=== PATIENT | female | born 1950 | race Caucasian/White ===

== ENCOUNTER 2017-05-26 11:33 | Emergency (ER) | payer MEDICARE, OTHER, SELFPAY ==
[2017-05-26 11:35] VITALS: BP 181/86; PULSE 78; RESP 18; TEMP 36.8; O2SAT 95; BMI 72.5
[2017-05-26 11:51] VITALS: O2SAT 97
--- NOTE | 2017-05-26 11:53 | EKG12_ITS ---
Test Reason : SOB Blood Pressure : / mmHG Vent. Rate : 075 BPM Atrial Rate : 075 BPM P-R Int : 156 ms QRS Dur : 070 ms QT Int : 368 ms P-R-T Axes : 044 056 087 degrees QTc Int : 410 ms Normal sinus rhythm Normal ECG Confirmed by BRAYAN DE LOS SANTOS, DIAN ([id number]), copy editor TAYLOR ARAIZA ([id number]) on 05/28/2017 4:04:29 PM Referred By: MARIA GUADALUPE Confirmed By:DIAN SCHMIDT MD
--- NOTE | 2017-05-26 11:53 | RAD_ITS ---
STUDY: X-RAY CHEST REASON FOR EXAM: Female, 67 years old. Chest pain for several days TECHNIQUE: 2 views of the chest were obtained COMPARISON: January 06, 2011 FINDINGS: No lung consolidation, pleural effusion or pneumothorax. Cardiac size is within normal limits. Osseous structures demonstrate no acute abnormalities. Slightly elevated right hemidiaphragm. Mild anterior wedging of the thoracic vertebrae possibly chronic mild perihilar streaky opacities. RAD/Chest PA and Lateral IMPRESSION: No evidence for focal airspace consolidation. Electronically Signed: Erasto Chowdhury, at 13:33 EST Tel , Service support ,
--- NOTE | 2017-05-26 11:59 | ED.VISSUMM ---
- ER Visit Summary Date of Service: 05/26/17 Chief Complaint: Chest pain and shortness of breath History of Present Illness: The patient is a [address] Santiago. She reports that she has a chronic cough that is essentially unchanged. Is productive yellow sputum without blood. However, over the past 3 days she has had subjective fever, chills, cold sweats. She has had mild shortness of breath currently. She reports moderate shortness of breath when she gets to coughing. Patient reports that she has had a constant substernal pressure for the past 3 days. It is 8 out of 10 at worst and 5 out of 10 currently. Is worsened with coughing. It is unchanged with exertion or deep breaths. Nothing makes this better. States she has had similar symptoms previously with URI. Review of systems patient complains of sinus drainage, sore throat is 9 out of 10 severity, myalgias, headache that is 8 out of 10 severity. She does report she has had similar headaches in the past. Physical Examination: Vitals: Stable. Afebrile. General: Well-nourished and well-developed. Head: Normocephalic atraumatic. Neck: Supple, no lymphadenopathy. No JVD. Nontender. Cardiovascular: Regular rate and rhythm. No murmurs. Respiratory: No respiratory distress. Clear to auscultation bilaterally. Abdominal: Soft, nontender, nondistended, normal bowel sounds. No guarding, rebound, or peritoneal signs. Back: Nontender. Extremities: Nontender, no edema. Skin: Normal color, no rash. Neurologic: Alert and oriented ?3. Cranial nerves II through XII are intact. Normal strength and sensation. Psych: Normal affect. Test Results: EKG is sinus at 75 with no acute changes. CBC is remarkable for segment neutrophils of 75. Chem-7 is more for glucose of 130. Influenza is negative. Troponin is less than 0.02. Chest x-ray shows chronic changes and no acute disease. Emergency Department Course and Treatment: She had an IV placed. She was given an albuterol aerosol with relief of her chest pain and significant relief of her shortness of breath. Treatment Plan: Patient will be discharged with symptomatic care. Given a prescription for albuterol MDI. Instructed follow-up Dr. Santiago in 3-5 days if not improving. Return to the emergency department for any worsening symptoms. Disposition: To home in improved and stable condition. Impression: 1. URI. This note was generated with [employer] dictation software. It may contain incorrect words, spelling, and punctuation that were not noted in review of the chart prior to signing ED Disposition - Plan for ED Patient: Disposition: Home or Assisted Living Chief Complaint: Shortness of Breath Instructions: ED Upper Resp Infec No Abx Tx Prescriptions: Albuterol Inhaler [Ventolin Hfa] 1 - 2 puff INHALATION Q4H PRN PRN #1 inhaler PRN Reason: Wheezing Referrals: Ana Santiago DO [Primary Care Provider] - 3-5 Days if not improving
[2017-05-26] MEDS: Albuterol 2.5 MG/3 ML VIAL.NEB. INHALATION (12:02)
[2017-05-26 12:03] VITALS: PULSE 75; RESP 15
[2017-05-26 12:03] LABS: Absolute Lymphocyte Count 1.87 X10^3/ul (0.83-4.51); Absolute Neutrophil Count 7.1 X10^3/uL (2.0-7.7); Basophil# 0.02 X10^3/uL; Basophil% 0.2 % (0-1); Eosinophil# 0.11 X10^3/uL; Eosinophils% 1.2 % (0-5); Hematocrit 42.4 % (37-47); Hemoglobin 13.9 g/dl (12.0-15.0); Lymphocyte # 1.87 X10^3/ul (4.0); Lymphocyte % 19.7 % (19-41); Mean Corp Hgb Conc 32.8 g/gl (32-36); Mean Corpuscular Hgb 30.3 pg (27.0-32.0); Mean Corpuscular Volume 92.6 fL (81-99); Mean Platelet Vol. 10.9 fl (6.2-12.0); Monocyte# 0.38 X10^3/uL; Neutrophil # 7.09 X10^3/uL (2.7-7.7); Neutrophil % 74.8 % (47-70); Platelet Count 243 K/mm3 (150-450); RBC Distribution Width SD 43.1 fl (35.1-43.9); Red Blood Count 4.58 M/mm3 (4.2-5.4); White Blood Count 9.5 K/mm3 (4.4-11.0)
[2017-05-26 12:04] LABS: POSITIVE COUNT NO; POSITIVE DIFFERENTIAL NO; POSITIVE MORPHOLOGY NO
[2017-05-26 12:16] LABS: Anion Gap 7 (5-15); BUN 10 mg/dL (7-18); BUN/Creat Ratio 12.8 RATIO (10-20); Calcium,Total 9.6 mg/dL (8.5-10.1); Chloride 105 mmol/L (98-107); Creatinine, Serum 0.78 mg/dL (0.55-1.02); EST Glomerular Filtration Rate 79 mL/min (>60); Est Glom Filt Rate - Afr Amer 95 mL/min (>60); Estimated Creatinine Clearance 56.87 ml/min; Glucose 130 mg/dL (74-106); Sodium Level 139 mmol/L (136-145)
[2017-05-26] MEDS: 0.9% Normal Saline 1,000 ML 150 ML IV (12:30)
[2017-05-26 13:07] VITALS: BP 112/53; PULSE 77; RESP 12; O2SAT 94
[2017-05-26 14:16] VITALS: BP 131/74; PULSE 62; RESP 16; TEMP 36.3; O2SAT 97
== END 2017-05-26 14:28 | disposition home or self-care (01) ==
PROVIDERS: Emergency Provider Emergency Medicine; Family Provider Internal Medicine; PCP Internal Medicine
DX: J06.9 Acute upper respiratory infection, unspecified (principal); J44.9 Chronic obstructive pulmonary disease, unspecified; I10 Essential (primary) hypertension; E78.00 Pure hypercholesterolemia, unspecified; E11.9 Type 2 diabetes mellitus without complications; Z79.84 Long term (current) use of oral hypoglycemic drugs; F32.9 Major depressive disorder, single episode, unspecified; E03.9 Hypothyroidism, unspecified; Z72.0 Tobacco use; Z82.49 Family history of ischemic heart disease and other diseases of the circulatory system; Z79.899 Other long term (current) drug therapy
CPT/HCPCS: 71046; 80048; 84484; 85025; 87804; 93005; 94640; 96360; 96361; 99285; J7030; A4216

== ENCOUNTER → 2018-10-27 10:03 | Outpatient (CLI) | payer MEDICARE, OTHER, SELFPAY ==
--- NOTE | 2018-10-27 10:08 | US_ITS ---
STUDY: ABDOMINAL ULTRASOUND - RIGHT UPPER QUADRANT REASON FOR VISIT: Female, 68 years old. Right upper quadrant pain TECHNIQUE: Ultrasound evaluation of the right upper quadrant was performed with real-time and static schofield-scale imaging. TECHNICAL QUALITY: Adequate. COMPARISON: None. FINDINGS: Liver: The liver measures 18.4 cm. There is fatty echogenicity of the liver. The bile ducts are within normal limits. There is hepatic color flow. The direction of portal flow is hepatopetal. There is no demonstrated mass lesion. Gallbladder: Normal distended gallbladder. The gallbladder wall measures 2.4 mm. There is a negative sonographic Roberts's sign. There is no pericholecystic fluid. There are gallstones. Common Bile Duct (C.B.D.): The common bile duct measures 3.8 mm. Pancreas: Normal size of the head, body and tail of the pancreas. There is normal echogenicity of the pancreas. There is no demonstrated pancreatic mass or cyst. Right Kidney: Normal size of the right kidney. The right kidney measures 12.0 x 4.9 x 4.6 cm. Normal renal cortex. The right cortex measures 1.5 cm. There is no demonstrated renal mass or cyst. There is no right hydronephrosis. US/Gallbladder IMPRESSION: Fatty enlarged liver. Cholelithiasis. Electronically Signed: Cuco Guajardo DO at 20:16 EDT Tel [phone], Service support ,
== END ==
PROVIDERS: Family Provider Internal Medicine; PCP Internal Medicine; Referring Provider Internal Medicine; Visit Provider Internal Medicine
DX: K80.20 Calculus of gallbladder without cholecystitis without obstruction (principal); K76.0 Fatty (change of) liver, not elsewhere classified; R10.11 Right upper quadrant pain
CPT/HCPCS: 76705

== ENCOUNTER 2018-11-12 12:14 | Emergency (ER) | payer MEDICARE, OTHER, SELFPAY ==
[2018-11-12 12:15] VITALS: BP 151/64; PULSE 99; RESP 17; TEMP 36.4; O2SAT 98; BMI 42.4
[2018-11-12 12:24] VITALS: BP 129/55; PULSE 81; RESP 15; O2SAT 96
--- NOTE | 2018-11-12 12:37 | ED.VIS.GEN ---
History of Present Illness Informant: Patient Onset: Yesterday Context: Sudden Onset Timing: Continuous Location: RUQ Current Severity: Mild Maximum Severity: Severe Narrative: Patient is a 68-year-old female 1 week status post lap scopic cholecystectomy presenting with sudden onset of right upper quadrant abdominal pain. She had a lap or scopic cholecystectomy performed at [facility] by Dr. Vail on 11/05/18. Patient states that the pain started around midnight last night, approximately 12 hours ago. She states it is very sharp and radiates around to her back. The pain seems to be worse with deep inspiration. Patient states she feels short of breath but it is because of the pain that she feels when she takes a deep breath. She has a chronic cough as a smoker but denies any change in this. She denies any fever. She denies any associated chest pain. She states her bowel movements have been irregular since before the surgery but is unchanged. She denies any black or bloody stools. She denies any urinary symptoms. Patient notes she was walking around yesterday and was feeling much better. She is been off her opioid pain medication since postop day 3. She is taken Aleve at home and nothing else. <Nancie Freed - Last Filed: 11/12/18 17:38> <Kike Licona - Last Filed: 11/20/18 00:26> Chief Complaint: Abd Pain Past Medical History Surgical History: - - Left ankle fracture, septoplasty, repair of colorectal fistula, hemorrhoidectomy Smoking Status: Current every day smoker - Family History Maternal Family History: Reports: Stroke Paternal Family History: Reports: Cancer Sibling Family History: Reports: Cancer <Nancie Freed - Last Filed: 11/12/18 17:38> <Kike Licona - Last Filed: 11/20/18 00:26> - Allergies and Home Meds Allergies/Adverse Reactions: Allergies metaxalone [From Skelaxin] Allergy (Verified 11/12/18 12:15) Other Penicillins Allergy (Verified 11/12/18 12:15) Hives Primary Care Physician: Ana Santiago DO [Primary Care Provider] - Mick Vail MD [STAFF PHYSICIAN] - 1 Day for another exam Review of Systems General: Denies: Chills, Fever, Sweats Eyes: Denies: Visual changes - bilaterally, Diplopia ENT: Denies: Rhinorrhea, Sore throat Cardiovascular: Denies: Chest pain, Palpitations Respiratory: Reports: Dyspnea, - - Pain with deep inspiration. Denies: Cough, Dyspnea on exertion Gastrointestinal: Reports: Abdominal pain - RUQ. Denies: Nausea, Vomiting, Diarrhea, Melena, Hematochezia Genitourinary: Denies: Dysuria, Hematuria, Frequency Musculoskeletal: Reports: Back pain - pain radiating to back. Denies: Extremity Pain Skin: Denies: Rash, Wounds Neurological: Denies: Headache, Weakness, Numbness <Nancie Freed - Last Filed: 11/12/18 17:38> Physical Exam Vital Signs/Narrative: Vital Signs Temp Pulse Resp BP Pulse Ox 11/12/18 12:24 81 15 129/55 H 96 11/12/18 12:15 97.5 F L 99 17 151/64 H 98 General: Well nourished, Well developed, No Acute Distress Head: Normocephalic, Atraumatic Eyes: Perrl, EOMI ENT: Moist mucous membranes, No rhinorrhea Neck: Supple, Nontender Cardiovascular: Regular rate, Regular rhythm, No murmurs Respiratory: No distress, CTA bilaterally, Chest nontender Abdomen: Soft, Nondistended, Normal bowel sounds, Tender - RUQ. Negative for: Nontender, Guarding, Rebound tenderness Back: Nontender, Normal Inspection. Negative for: CVA tenderness Extremities: Nontender, No edema Skin: Normal color, No rash, - - Laparoscopic port sites with associated ecchymosis, appears to be appropriate healing for postop. Neurological: Alert, Oriented x3, Cranial nerves II-XII grossly intact, Normal Strength, Normal Sensation Psychological: Normal affect, Normal Mood <Nancie Freed - Last Filed: 11/12/18 17:38> Diagnostic/Tx/Re-eval Chest X-Ray - ED: 2 View - No acute process, Read by ED Physician, Read by Radiologist, Normal - Rhythm Strip Rhythm Strip: Sinus Rhythm - Sinus rhythm at a rate of 88 CO interval 152 QRS 68 QT/QTc 342/[address] segments No significant change compared to prior EKG on 05/26/2017 - Medical Decision Making Patient is evaluated for right upper quadrant abdominal pain. Patient is one-week postoperative from a lap scopic cholecystectomy. Patient appears nontoxic and in no acute distress. She declines any pain medication while in the emergency room. She does elicit some pleuritic chest pain. D-dimer was obtained which is elevated. A CTA is ordered which does not show any PE or other acute thoracic pathology. Patient's alkaline phosphatase is mildly elevated which is consistent with her recent cholecystectomy however her other liver enzymes and bilirubin are normal and I do not suspect choledocholithiasis. Patient does have elevated leukoesterase in her urine but does not have CVA tenderness. Urine culture is pending. She does not have a significant leukocytosis and she will not be started on antibiotics at this time. Patient will be discharged home to follow-up with her surgeon, Dr. Vail. I did discuss the case with him on the phone and he is comfortable with this plan. Patient is counseled on signs and symptoms requiring return to the emergency room. Patient verbalizes agreement and understand this plan. Patient discharged home in stable and improved condition. <Nancie Freed - Last Filed: 11/12/18 17:38> - Medical Decision Making Attending Note: Patient presented secondary to right upper quadrant pain status post cholecystectomy. Work-up showed the patient have a positive d-dimer so CT angiogram was ordered which was found to be negative. Patient had a mildly elevated alkaline phosphatase which was discussed with her general surgeon, and this is normal following cholecystectomy. Patient was discharged in improved condition. <Kike Licona - Last Filed: 11/20/18 00:26> ED Disposition <Nancie Freed - Last Filed: 11/12/18 17:38> <Kike Licona - Last Filed: 11/20/18 00:26> - Plan for ED Patient: Disposition: Home or Assisted Living Diagnosis: Abdominal pain Instructions: Abdominal Pain, Managing Post-Op Pain at Home: Non-Medication Relief Referrals: Ana Santiago DO [Primary Care Provider] - Mick Vail MD [STAFF PHYSICIAN] - 1 Day for another exam
--- NOTE | 2018-11-12 12:39 | EKG12_ITS ---
Test Reason : ABD PAIN Blood Pressure : / mmHG Vent. Rate : 080 BPM Atrial Rate : 080 BPM P-R Int : 152 ms QRS Dur : 068 ms QT Int : 342 ms P-R-T Axes : 046 055 088 degrees QTc Int : 394 ms Normal sinus rhythm Nonspecific T wave abnormality Abnormal ECG Confirmed by XAVIER MCGRAW ([id number]), editor city MAHESH BAKER ([id number]) on 11/17/2018 2:07:51 PM Referred By: RISA Confirmed By:XAVIER MCGRAW
[2018-11-12 13:16] LABS: Absolute Lymphocyte Count 1.65 X10^3/uL (0.83-4.51); Absolute Neutrophil Count 9.3 X10^3/uL (2.0-7.7); Basophil# 0.03 X10^3/uL; Basophil% 0.3 % (0-1); Eosinophil# 0.15 X10^3/uL; Eosinophils% 1.3 % (0-5); Hemoglobin 13.5 g/dL (12.0-15.0); Lymphocyte # 1.65 X10^3/ul (4.0); Lymphocyte % 14.1 % (19-41); Mean Corp Hgb Conc 32.9 g/dL (32-36); Mean Corpuscular Hgb 31.2 pg (27.0-32.0); Mean Corpuscular Volume 94.7 fL (81-99); Monocyte# 0.54 X10^3/uL; Monocyte% 4.6 % (0-10); NRBC Flagged by Analyzer 0 % (0-5); Neutrophil # 9.28 X10^3/uL (2.7-7.7); Neutrophil % 79.2 % (47-70); Platelet Count 238 K/mm3 (150-450); RBC Distribution Width CV 12.4 % (11.6-14.6); RBC Distribution Width SD 43.2 fl (35.1-43.9); Red Blood Count 4.33 M/mm3 (4.2-5.4); White Blood Count 11.7 K/mm3 (4.4-11.0)
--- NOTE | 2018-11-12 13:17 | RAD_ITS ---
STUDY: X-RAY CHEST REASON FOR EXAM: Female, 68 years old. Postop pain TECHNIQUE: PA and lateral views of the chest. COMPARISON: 05/26/2017 FINDINGS: The lungs are clear and expanded. There is no demonstrated pleural abnormality. Normal size heart. Normal mediastinum and gabrile. Normal visualized pulmonary arteries. Normal visualized aortic arch and descending thoracic aorta. Normal visualized thoracic spine. Normal visualized ribs, clavicles, and shoulders. There is no demonstrated abnormality of the visualized soft tissue structures of the upper abdomen. RAD/Chest PA and Lateral IMPRESSION: No acute pulmonary process Electronically Signed: Darwin Boone MD at 13:54 EDT , Service support ,
[2018-11-12 13:19] LABS: Color, Urine Yellow (Yellow); Glucose, Dipstick Normal (Normal); Ketone-Dipstick Negative (Negative); Leukocyte Esterase-Dipstick 500 /ul (Negative); Nitrite-Dipstick Negative (Negative); Occult Blood-Urine 10 /ul (Negative); Protein-Dipstick Negative (Negative); Specific Gravity, Urine 1.005 (1.002-1.030); Urine Bilirubin Dipstick Negative (Negative); Urine Clarity Sl. Cloudy (Clear); Urine Urobilinogen Normal (Normal); Urine pH 6.5 (5.0 - 8.0)
[2018-11-12 13:26] LABS: Bacteria RARE /hpf (None Seen); Mucous, Urine RARE /hpf (<or=2+); Red Blood Cells-Urine 0-5 SEEN /hpf (0-5); Squamous Epithelial Cells - UA 0-5 SEEN /hpf (5-10); Transitional Epithelial - Ur 0-5 SEEN /hpf (0-5); White Blood Cells 10-25 SEEN /hpf (0-5)
[2018-11-12 13:30] LABS: D-Dimer Quantitative (DVT/PE) 1.54 FEU/ug/m (0.27-0.49)
[2018-11-12 13:34] LABS: AST(SGOT) 22 U/L (15-37); Alanine Aminotransfer ALT/SGPT 34 U/L (13-56); Albumin, Serum 3.5 g/dL (3.2-5.0); Alkaline Phosphatase 122 U/L (45-117); Anion Gap 8 (5-15); BUN 13 mg/dL (7-18); BUN/Creat Ratio 14.2 RATIO (10-20); Bilirubin, Direct 0.06 mg/dL (0.00-0.30); Calcium,Total 9.5 mg/dL (8.5-10.1); Chloride 105 mmol/L (98-107); Creatinine, Serum 0.92 mg/dL (0.55-1.02); EST Glomerular Filtration Rate 65 mL/min (>60); Est Glom Filt Rate - Afr Amer 79 mL/min (>60); Estimated Creatinine Clearance 47.57 ml/min; Glucose 123 mg/dL (74-106); Lipase 65 U/L (73-393); Potassium 4.3 mmol/L (3.5-5.1); Protein, Total 7.5 g/dL (6.4-8.2); Sodium Level 140 mmol/L (136-145)
--- NOTE | 2018-11-12 13:36 | CT_ITS ---
STUDY: CTA CHEST REASON FOR EXAM: Female, 68 years old. Acute substernal chest pain RADIATION DOSAGE (If Supplied By Facility): CTDIvol = ( 12.59 ) mGy, DLP = ( 463.00 ) mGycm TECHNIQUE: The examination was performed with the intravenous administration of 100ml IV Isovue 300. Post-processing of the angiographic images was performed, with multiplanar reformation and 3D reconstruction. Individualized dose optimization techniques were used for this CT. COMPARISON: None. FINDINGS: Normal enhancement of the main pulmonary artery and right and left pulmonary arteries. Normal enhancement of the bilateral peripheral pulmonary arteries. There is no demonstrated pulmonary embolism. Normal thoracic aorta and visualized great vessels. There is no demonstrated aortic dissection. Normal heart and pericardium. There are scattered subcentimeter axillary and mediastinal lymph nodes. Normal hilar regions. Normal visualized trachea and bronchi. The lungs are well expanded. Normal pulmonary parenchyma. Normal pleura. Normal chest wall structures. There are degenerative changes of thoracic spine. Limited cuts in the upper abdomen show fatty infiltration of the liver. CT/CTA Chest W/WO Contrast IMPRESSION: No demonstrated PE, or thoracic aortic aneurysm or dissection No acute pulmonary process Fatty liver Electronically Signed: Darwin Boone MD at 14:43 EDT , Service support ,
[2018-11-12 14:34] VITALS: BP 129/42; PULSE 79; RESP 15; O2SAT 99
[2018-11-12 15:33] VITALS: BP 129/41; PULSE 76; RESP 18; O2SAT 98
== END 2018-11-12 15:34 | disposition home or self-care (01) ==
PROVIDERS: Emergency Provider Emergency Medicine; Family Provider Internal Medicine; PCP Internal Medicine
DX: R10.11 Right upper quadrant pain (principal); F17.200 Nicotine dependence, unspecified, uncomplicated; Z90.49 Acquired absence of other specified parts of digestive tract
CPT/HCPCS: 71046; 71275; 80048; 80076; 81001; 83690; 84484; 85025; 85379; 87077; 87086; 87088; 87186; 93005; 99285; Q9967; A4216

== ENCOUNTER → 2019-01-08 12:06 | Outpatient (CLI) | payer MEDICARE, OTHER, SELFPAY ==
--- NOTE | 2019-01-08 12:10 | BI_ITS ---
MAMMOGRAPHY - BILATERAL SCREENING REASON FOR EXAM: Female, 68 years old. Routine annual screening examination. PERTINENT HISTORY: Non-contributory. TECHNIQUE: Digital bilateral breast keerthi (3D mammographic acquisition) in the CC and MLO projections. 2-D mediolateral oblique (MLO) and craniocaudad (CC) views of both breasts were obtained. CAD: Full Field Digital Mammography with Computer Added Detection was performed. COMPARISON: Comparison is made with prior examination dated February 23, 2017 and February 25, 2014. FINDINGS: Breast Composition: There are scattered areas of fibroglandular density. There are no dominant masses or suspicious calcifications. No other significant abnormalities are identified. There has been no significant change since the prior study. BI/SCREEN MAMM (CAD) W/KEERTHI BILAT IMPRESSION: Stable bilateral screening mammogram. Yearly follow-up mammogram recommended. (A) ASSESSMENT CATEGORY: BIRADS Category 1: Negative. A letter regarding these results will be sent to the patient by the facility within 30 days. Approximately 10% of breast cancers are not detected by mammography. A normal mammogram should not delay biopsy of a clinically suspicious abnormality. [id number] Electronically Signed: Roberto Jung, at 13:58 EDT , Service support ,
== END ==
PROVIDERS: Family Provider Internal Medicine; PCP Internal Medicine; Referring Provider Internal Medicine; Visit Provider Internal Medicine
DX: Z12.31 Encounter for screening mammogram for malignant neoplasm of breast (principal); Z78.0 Asymptomatic menopausal state
CPT/HCPCS: 77063; 77067

== ENCOUNTER → 2020-07-28 12:39 | Outpatient (CLI) | payer MEDICARE, OTHER, SELFPAY ==
--- NOTE | 2020-07-28 12:41 | BI_ITS ---
MAMMOGRAPHY - BILATERAL SCREENING REASON FOR EXAM: Female, 70 years old. Routine annual screening examination. PERTINENT HISTORY: Non-contributory. Occasional bilateral lateral breast tenderness. TECHNIQUE: Digital bilateral breast keerthi (3D mammographic acquisition) in the CC and MLO projections. 2-D mediolateral oblique (MLO) and craniocaudad (CC) views of both breasts were obtained. CAD: Full Field Digital Mammography with Computer Added Detection was performed. COMPARISON: Comparison is made with prior study dated 01/08/2019 and 02/23/2017. FINDINGS: Breast Composition: There are scattered areas of fibroglandular density. There are no dominant masses or suspicious calcifications. Stable small benign-appearing bilateral axillary lymph. No other significant abnormalities are identified. There has been no significant change since the prior study. BI/SCRN MAMM (CAD)W/KEERTHI BILAT IMPRESSION: Stable bilateral screening mammogram. Yearly follow-up mammogram recommended. (A) ASSESSMENT CATEGORY: BIRADS Category 2: Benign. A letter regarding these results will be sent to the patient by the facility within 30 days. Approximately 10% of breast cancers are not detected by mammography. A normal mammogram should not delay biopsy of a clinically suspicious abnormality. [id number] Electronically Signed: Roberto Jung MD at 13:53 EDT , Service support ,
--- NOTE | 2020-07-28 12:45 | BD_ITS ---
STUDY: DUAL ENERGY X-RAY ABSORPTIOMETRY / DXA REASON FOR EXAM: Female, 70 years old. [id number]. The patient is postmenopausal. Loss of height. TECHNIQUE: Bone Mineral Density (BMD) measurements of lumbar spine and bilateral hips were obtained. COMPARISON: Comparison is made with prior study dated 09/25/2011. FINDINGS: Lumbar Spine (L1-L4): g/cm2 (1.151) / T-score (-0.2) / Z-score (1.4) Findings are suggestive of normal bone density with a low fracture risk. Left Femur Total: g/cm2 (1.131) / T-score (1.0) / Z-score (2.3) Left Femoral Neck: g/cm2 (0.964) / T-score (-0.5) / Z-score (1.1) Right Femur Total: g/cm2 (1.155) / T-score (1.2) / Z-score (2.5) Right Femoral Neck: g/cm2 (1.033) / T-score (0.0) / Z-score (1.6) The T-Scores on the most recent prior examination were: Lumbar Spine (L1-L4): There has been worsening of bone density since the previous examination. Left Femur Total: which represents a worsening of 5%. Right Femur Total: which represents a worsening of 8.5%. BD/Dexa Bone Density Study IMPRESSION: The patient is considered normal as outlined below according to World [place] Organization (WHO) criteria with a low fracture risk. There has been worsening of bone density since the previous examination. Reference Information: The T-score is the number of standard deviations above or below the standard which is normal for young adults at their peak bone mineral density. The World Health Organization (WHO) interprets the T-scores as follows: Above -1 Normal bone density Between -1 and -2.5 Osteopenia Equal to / or below -2.5 Osteoporosis As a practical clinical guideline, osteopenia may be graded as follows: Mild -1 through -1.5 Moderate -1.6 through -2.0 Severe -2.1 through -2.4 The Z-score is the number of standard deviations above or below age-matched controls. A Z-score of less than -1.5 would be considered abnormal. References: 1. NIH Osteoporosis and Related Bone Diseases www osteo.org 2. International Society for Clinical Densitometry www iscd.org 3. National Osteoporosis Foundation www nof.org Electronically Signed: Roberto Jung MD at 15:16 EDT , Service support ,
== END ==
PROVIDERS: PCP Internal Medicine; Referring Provider Internal Medicine; Visit Provider Internal Medicine
DX: Z78.0 Asymptomatic menopausal state (principal); Z12.31 Encounter for screening mammogram for malignant neoplasm of breast
CPT/HCPCS: 77063; 77067; 77080

== ENCOUNTER 2020-10-08 12:08 | Emergency (ER) | payer MEDICARE, OTHER, SELFPAY ==
[2020-10-08 12:09] VITALS: BP 153/73; PULSE 85; RESP 16; TEMP 36.1; BMI 41.1
--- NOTE | 2020-10-08 12:30 | RAD_ITS ---
HISTORY: fall. TECHNIQUE: XR Knee Complete 4 Views or More. # of images incl. paperwork: 4. COMPARISON: None. FINDINGS: BONES: Nondisplaced vertically oriented fracture through the lateral patella. Mineralization unremarkable. JOINTS: No dislocation. Mild degenerative change. Mild lateral tilt to the patella. Mild-moderate joint effusion with anterior soft tissue swelling. RAD/Knee 4 or More Views IMPRESSION: Nondisplaced fracture of the patella. Degenerative changes and joint effusion in the right knee. at 1326 Reported and signed by: Ely Witt MD Electronically Signed: Ely Witt MD at 13:23 EDT Tel , Service support ,
--- NOTE | 2020-10-08 12:44 | ED.VIS.LOWEX ---
HPI History of Present Illness Chief Complaint: Lower Extremity Injury Narrative Narrative: Patient presenting for evaluation secondary to a lower extremity injury. Patient suffered a mechanical fall when she tripped over the curb yesterday. She states that she fell directly onto her right knee. Patient states that she was able to ambulate yesterday, still able to ambulate today but has had gradually worsening pain. She denies hitting her head. She does report a mild amount of hip and low back pain that came on gradually. No numbness or weakness associated with this. She did suffer an abrasion to the right knee. Review of systems otherwise negative. PFSH PFSH Home Medications Lisinopril/Hydrochlorothiazide [Zestoretic 20/12.5 Tablet] 1 tab PO DAILY 06/21/14 [History Last Taken 11/12/18] fluticasone propionate 2 spray NASAL DAILY 06/21/14 [History Last Taken 11/12/18] gabapentin 300 mg PO DAILY 06/21/14 [History Last Taken 11/12/18] levothyroxine 125 mcg PO DAILY 06/21/14 [History Last Taken 11/12/18] metformin 850 mg PO BID 06/21/14 [History Last Taken 11/12/18] montelukast 10 mg PO DAILY 06/21/14 [History Last Taken 11/12/18] sertraline 100 mg PO DAILY 06/21/14 [History Last Taken 11/12/18] simvastatin 10 mg PO QHS 06/21/14 [History Last Taken 11/12/18] sitagliptin [Januvia] 100 mg PO DAILY 06/21/14 [History Last Taken 11/12/18] albuterol sulfate [Ventolin HFA] 1 - 2 puff INHALATION Q4H PRN PRN #1 inhaler 05/26/17 [Rx Last Taken Unknown] oxycodone-acetaminophen [Percocet] 1 tab PO Q6H PRN 3 Days #12 tab 10/08/20 [Rx Last Taken Unknown] Allergy/AdvReac Type Severity Reaction Status Date / Time metaxalone [From Skelaxin] Allergy Other Verified 10/08/20 12:11 Penicillins Allergy Hives Verified 10/08/20 12:11 Social History Smoking Status: Current every day smoker tobacco type: cigarettes ROS ROS ED Constitutional Constitutional ED: Denies sweats Cardiovascular Cardiovascular: Denies chest pain Respiratory/Chest Respiratory/Chest: Denies dyspnea Gastrointestinal Gastrointestinal: Denies abdominal pain Musculoskeletal Musculoskeletal: Reports back pain and other Details: Right hip and back pain Integumentary Reports Abrasions Neurologic Neurologic: Denies paresthesias or weakness Hematologic/Lymphatic Hematologic/Lymphatic: Denies easy bleeding or easy bruising EXAM Physical Exam Const Vital Signs: 10/08/20 12:09 Temperature 97.0 F L Temperature Source Temporal Pulse Rate 85 Respiratory Rate 16 Blood Pressure 153/73 H Blood Pressure Mean 99 Positive well nourished, well developed and obese General Appearance ED: well developed and NAD Nutritional Appearance: obese HEENT normocephalic and atraumatic Eyes Eyes Narrative: EOMI Neck full ROM Neck Narrative: Nontender no step-offs Chest Wall inspection of chest normal Resp normal respiratory effort and clear to auscultation bilaterally Cardio regular rate, regular rhythm and no murmurs Cardio Narrative: 2+ radial 2+ DP pulses bilaterally symmetric GI non-tender Palpation: soft Back/Spine Back/Spine Narrative: Patient has some right-sided paraspinal tenderness to palpation, no midline tenderness Extremity Extremity Narrative: Examination of the patient's right lower extremity shows an abrasion over the anterior portion of the patient's right knee. There is a joint effusion noted, there is pain with range of motion extensor mechanism is intact. Minimal pain with range of motion of the right hip. Remainder of the exam of the right lower extremity is atraumatic and unremarkable Neuro oriented x3 and moves all extremities Sensorium / Orientation: alert Motor Exam: strength 5/5 throughout Psych mental status grossly normal Skin Lesions: no lesions Rashes: no rashes Trauma: abrasion MDM MDM MDM Narrative Medical decision making narrative: Patient presented for a knee injury. Physical exam showed no other injuries, radiographs of the knee demonstrate evidence of a nondisplaced patellar fracture by my personal review as well as radiology. Patient be placed in a knee immobilizer will be given a walker. She will be sent home with a course of pain medication. Patient will be given follow-up with orthopedics. Patient does have an intact extensor mechanism. Radiography Diagnostic Testing: Radiology Impression Knee X-Ray 10/08/20 12:30 IMPRESSION: Nondisplaced fracture of the patella. Degenerative changes and joint effusion in the right knee. at 1326 Reported and signed by: Ely Witt MD Electronically Signed: Ely Witt MD at 13:23 EDT Tel , Service support , Discharge Plan Triage Chief Complaint: Lower Extremity Injury ED Provider: Kike Licona Dx/Rx/DC Orders Clinical Impression: Closed fracture of right patella Instructions: ED Patella Fracture Prescriptions: New oxycodone-acetaminophen [Percocet] 5-325 mg tablet 1 tab PO Q6H PRN (Reason: pain) 3 Days Qty: 12 RF: 0 No Action sertraline 100 MG tablet 100 mg PO DAILY RF: 0 simvastatin 10 MG tablet 10 mg PO QHS RF: 0 metformin 850 MG tablet 850 mg PO BID RF: 0 levothyroxine 125 MCG tablet 125 mcg PO DAILY RF: 0 gabapentin 300 MG capsule 300 mg PO DAILY RF: 0 montelukast 10 MG tablet 10 mg PO DAILY RF: 0 fluticasone propionate 1 SPRAY spray,suspension 2 spray NASAL DAILY RF: 0 sitagliptin [Januvia] 100 MG tablet 100 mg PO DAILY RF: 0 Lisinopril/Hydrochlorothiazide [Zestoretic 20/12.5 Tablet] 1 TABLET tablet 1 tab PO DAILY RF: 0 albuterol sulfate [Ventolin HFA] 1 INHALER inhaler 1 - 2 puff inhalation Q4H PRN PRN (Reason: Wheezing) Qty: 1 RF: 0 Primary Care Provider: Ana Santiago Referrals: Ana Santiago DO [Primary Care Provider] - Brendan Drummond MD [STAFF PHYSICIAN] - Disposition Disposition: Home, Self Care
[2020-10-08] MEDS: Ketorolac 30 MG/ML Syringe IM (13:23)
[2020-10-08 14:32] VITALS: BP 151/87; PULSE 81; RESP 16; O2SAT 99
== END 2020-10-08 14:34 | disposition home or self-care (01) ==
PROVIDERS: Emergency Provider Emergency Medicine; PCP Internal Medicine
DX: S82.001A Unspecified fracture of right patella, initial encounter for closed fracture (principal); F17.210 Nicotine dependence, cigarettes, uncomplicated; E66.9 Obesity, unspecified; W01.0XXA Fall on same level from slipping, tripping and stumbling without subsequent striking against object, initial encounter
CPT/HCPCS: 73564; 96372; 99283

== ENCOUNTER → 2022-01-29 | Outpatient (CLI) | payer MEDICARE, OTHER, SELFPAY ==
[2022-01-29 15:31] LABS: Absolute Lymphocyte Count 1.54 X10^3/uL (0.83-4.51); Absolute Neutrophil Count 7.3 X10^3/uL (2.0-7.7); Basophil# 0.01 X10^3/uL; Basophil% 0.1 % (0-1); Eosinophil# 0.03 X10^3/uL; Eosinophils% 0.3 % (0-5); Hematocrit 30.8 % (37-47); Hemoglobin 10.1 g/dL (12.0-15.0); Lymphocyte # 1.54 X10^3/ul (0.83-4.51); Lymphocyte % 16.6 % (19-41); Mean Corp Hgb Conc 32.8 g/dL (32-36); Mean Corpuscular Hgb 30.7 pg (27.0-32.0); Mean Corpuscular Volume 93.6 fL (81-99); Mean Platelet Vol. 11.5 fl (6.2-12.0); Monocyte# 0.41 X10^3/uL; Monocyte% 4.4 % (0-10); NRBC Flagged by Analyzer 0 % (0-5); Neutrophil # 7.25 X10^3/uL (2.7-7.7); Neutrophil % 78.1 % (47-70); Platelet Count 284 K/mm3 (150-450); RBC Distribution Width CV 13.4 % (11.6-14.6); RBC Distribution Width SD 46.5 fl (35.1-43.9); Red Blood Count 3.29 M/mm3 (4.2-5.4); White Blood Count 9.3 K/mm3 (4.4-11.0)
[2022-01-29 15:45] LABS: Erythrocyte Sedimentation Rate 66 mm/hr (0-30)
[2022-01-29 15:54] LABS: ALB/GLOB Ratio 0.5 RATIO (0.9-2.4); AST(SGOT) 32 U/L (15-37); Alanine Aminotransfer ALT/SGPT 29 U/L (13-56); Albumin, Serum 2.3 g/dL (3.2-5.0); Alkaline Phosphatase 158 U/L (45-117); Anion Gap 16 (5-15); BUN 16 mg/dL (7-18); BUN/Creat Ratio 11.6 RATIO (10-20); Calcium,Total 8.5 mg/dL (8.5-10.1); Chloride 105 mmol/L (98-107); Creatinine, Serum 1.38 mg/dL (0.55-1.02); EST Glomerular Filtration Rate 40 mL/min (>60); Est Glom Filt Rate - Afr Amer 49 mL/min (>60); Globulin 4.6 g/dL (2.2-4.2); Glucose 121 mg/dL (74-106); Potassium 3.5 mmol/L (3.5-5.1); Protein, Total 6.9 g/dL (6.4-8.2); Sodium Level 145 mmol/L (136-145)
[2022-01-31 20:02] LABS: CMV Acute Antibody IgM < 30.0 AU/mL (0.0-29.9); CMV Antibody IgG > 10.00 U/mL (0.00-0.59); EBV Acute VCA IgM < 36.0 U/mL (0.0-35.9); EBV Nuclear Antigen IgG > 600.0 U/mL (0.0-17.9)
== END | disposition home or self-care (01) ==
LOC: LABSPEC 15:24
PROVIDERS: PCP Internal Medicine; Visit Provider Internal Medicine
DX: R50.9 Fever, unspecified (principal); R53.1 Weakness
CPT/HCPCS: 80053; 84443; 85025; 85652; 86140; 86644; 86645; 86664; 86665

== ENCOUNTER → 2022-09-20 | Outpatient (CLI) | payer MEDICARE, OTHER, SELFPAY ==
--- NOTE | 2022-09-20 13:13 | CT_ITS ---
STUDY: CT ABDOMEN AND PELVIS WITHOUT CONTRAST REASON FOR EXAM: Female, 72 years old. Abdominal pain, bilateral lower quadrant RADIATION DOSAGE (If Supplied By Facility): CTDIvol = ( 21.53 ) mGy, DLP = ( 1075.79 ) mGycm TECHNIQUE: Transaxial images were obtained from the dome of the diaphragm to the symphysis pubis without oral contrast, and without intravenous contrast. Sagittal and coronal images were reconstructed. Individualized dose optimization techniques were used for this CT. COMPARISON: Comparison is made with prior study June 21, 2014. FINDINGS: 2 mm noncalcified nodule in the peripheral lateral aspect of the right lower lobe. This is best seen on axial image #7. Coronary artery calcification. There is decreased attenuation of the liver consistent with steatosis. Borderline hepatomegaly. The patient is status post cholecystectomy. Normal spleen. Normal pancreas. Normal bilateral adrenal glands. Normal right kidney. 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 Normal visualized stomach. Normal small intestine. There are scattered colonic diverticula consistent with diverticulosis. The appendix is visualized and appears normal. There is scattered atherosclerotic calcification of the abdominal aorta, without a demonstrated aneurysm. Normal inferior vena cava. Normal retroperitoneum. Normal urinary bladder. Normal abdominal wall. There are degenerative changes of the visualized lumbar spine. CT/Abdomen/Pelvis without Cont IMPRESSION: Borderline hepatomegaly and fatty infiltration of the liver. The patient is status post cholecystectomy. Electronically Signed: Roberto Jung MD at 14:57 EDT ,
--- NOTE | 2022-09-20 13:30 | CT_ITS ---
STUDY: LOW DOSE CT LUNG CANCER SCREENING REASON FOR EXAM: Female, 72 years old. Smoker RADIATION DOSAGE (If Supplied By Facility): CTDIvol = ( 3.02 ) mGy, DLP = ( 88.75 ) mGycm TECHNIQUE: No contrast was administered. Low dose technique was utilized (average mAS-38 and kVp 120). 1.25 mm axial source images with a slice interval of 1.25-mm were reconstructed in lung windows. 2.5 mm axial source images with a slice interval of 2.5-mm were reconstructed in lung windows. 5.0 mm axial source images with a slice interval of 5.0-mm were reconstructed in soft tissue windows. COMPARISON: Comparison is made with prior examination dated January 06, 2011. NODULES: No suspicious nodules are seen. Mild degree of hyperinflation. Emphysema: No significant emphysematous changes are present. Endobronchial lesion: Unremarkable Aorta: Mild atherosclerotic plaques of the aortic arch. CORONARY ARTERIES: Coronary artery calcification is seen. Heart: Unremarkable Pulmonary artery: Unremarkable Mediastinal nodes: Small benign-appearing mediastinal lymph nodes. Other chest and abdominal findings: CT/Low Dose CT Lung Screening IMPRESSION: Lung-RADS category 2 - Continue annual screening with LDCT in 12 months. IMPORTANT NOTES FOR USE: ACR Lung-RADS Version 1.1 Assessment Categories Release Date: 2018 Category: Coded 0-4 bases on nodule(s) with highest degree of suspicion. Negative screen is defined as categories 1 and 2; a positive screen is defined as categories 3 and 4. Category 3 and 4A nodules that are unchanged on interval CT should be coded as category 2, and individuals returned to screening in 12 months. Category 4X: Category 3 or 4 nodules with additional imaging findings that increase the suspicion of lung cancer, such as spiculation, GGN that doubles in size in 1 year, enlarged lymph notes, etc. Category Modifiers: S (significant finding unrelated to lung cancer) Electronically Signed: Roberto Jung MD at 15:11 EDT ,
== END | disposition home or self-care (01) ==
PROVIDERS: PCP Internal Medicine; Referring Provider Internal Medicine; Visit Provider Internal Medicine
DX: Z12.2 Encounter for screening for malignant neoplasm of respiratory organs (principal); F17.210 Nicotine dependence, cigarettes, uncomplicated
CPT/HCPCS: 71271; 74176

== ENCOUNTER → 2023-01-07 | Outpatient (CLI) | payer MEDICARE, OTHER, SELFPAY ==
--- NOTE | 2023-01-07 10:46 | ECHOD_ITS ---
Reason For Study: MURMUR Procedure This was a 2D Doppler, Color Flow transthoracic echocardiogram. Exam performed in department. Left Ventricle Normal LV size. The estimated ejection fraction is 65 %. No evidence for diastolic dysfunction. No regional wall motion abnormalities noted. Right Ventricle Normal RV size. Normal systolic function. Atria Normal left atrium. Normal right atrium. No doppler evidence for ASD. Mitral Valve There is moderate mitral annular calcification. There is no mitral valve stenosis. Mild (1+) mitral valve insufficiency. Tricuspid Valve There is no tricuspid stenosis. Trivial tricuspid valve insufficiency. Pulmonary artery systolic pressure is 35 mmHg. Aortic Valve Aortic sclerosis, no stenosis. There is no aortic stenosis. No aortic valve insufficiency. Pulmonic Valve There is no pulmonic valvular stenosis. No pulmonic valve insufficiency. Great Vessels Normal aortic root. Pericardium/Pleural No pericardial effusion. MMode/2D Measurements & Calculations LVIDd: 3.2 cm IVSd: 0.89 cm LVOT diam: 2.0 cm LVIDs: 2.1 cm LVPWd: 1.00 cm LVOT area: 3.3 cm2 RVDd: 3.2 cm FS: 32.6 % Ao root diam: 2.7 cm LAV(MOD-bp): 38.3 ml LVAd ap4: 23.1 cm2 LAV(MOD-bp) Indexed: 20.9 ml/m2 LVLd ap4: 7.5 cm LAV(MOD-sp2): 39.8 ml EDV(MOD-sp4): 57.9 ml LAV(MOD-sp4): 33.9 ml EDV(sp4-el): 60.7 ml LVAs ap4: 11.8 cm2 LVLs ap4: 6.2 cm ESV(MOD-sp4): 18.4 ml ESV(sp4-el): 19.0 ml EF(MOD-sp4): 68.2 % EF(sp4-el): 68.7 % SV(MOD-sp4): 39.5 ml SV(sp4-el): 41.7 ml LA A4 area: 13.7 cm2 LA dimension(2D): 3.1 cm RA A4 area: 11.9 cm2 Time Measurements MV dec time: 0.23 sec Doppler Measurements & Calculations MV E max nima: 85.5 cm/sec Lat Peak E' Nima: 8.9 cm/sec Med Peak E' Nima: 7.8 cm/sec MV A max nima: 99.0 cm/sec E/E' lat: 9.7 E/E' med: 10.9 MV E/A: 0.86 Ao V2 max: 220.3 cm/sec LV V1 max: 140.8 cm/sec SV(LVOT): 106.9 ml Ao max P.4 mmHg LV V1 max P.9 mmHg Ao V2 mean: 153.9 cm/sec LV V1 mean P.6 mmHg Ao mean P.5 mmHg LV V1 mean: 102.0 cm/sec Ao V2 VTI: 46.5 cm LV V1 VTI: 32.8 cm AV (velocity ratio): 0.70 MARGUERITE(I,D): 2.3 cm2 MARGUERITE(V,D): 2.1 cm2 PA V2 max: 89.1 cm/sec TR max nima: 277.5 cm/sec TR max P.8 mmHg ECHO/Echo Complete Interpretation Summary No evidence for diastolic dysfunction. Mild (1+) mitral valve insufficiency. The estimated ejection fraction is 65 %. Ordering Physician: Ana Santiago Referring Physician: Ana Santiago Performed By: Chelly Eldridge, JOJO
== END | disposition home or self-care (01) ==
LOC: CVS 10:45
PROVIDERS: PCP Internal Medicine; Referring Provider Internal Medicine; Visit Provider Internal Medicine
DX: R01.1 Cardiac murmur, unspecified (principal)
CPT/HCPCS: 93306

== ENCOUNTER → 2024-04-20 | Outpatient (CLI) | payer MEDICARE, OTHER, SELFPAY ==
--- NOTE | 2024-04-20 15:00 | RAD_ITS ---
STUDY: X-RAY RIGHT FOOT, TOES REASON FOR EXAM: Female, 73 years old. X-RAY OF TOES OF RIGHT FOOT -- Foot pain, right TECHNIQUE: 3 views of the right toes were obtained. COMPARISON: None. FINDINGS: Normal visualized metatarsals. 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 There is also degenerative arthrosis at the hallux sesamoid-first metatarsal head articulation. Normal second through fifth MTP joints. Normal interphalangeal joints of the toes. Intact phalanges of the toes. There is no demonstrated fracture. There is soft tissue swelling along the dorsum of the forefoot. 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 Degenerative arthrosis at the hallux sesamoid-first metatarsal head articulation. Soft tissue swelling along the dorsum of the forefoot. Electronically Signed: Blas Parker MD at 16:10 EST ,
--- NOTE | 2024-04-20 15:00 | RAD_ITS ---
STUDY: X-RAY - RIGHT FOOT CLINICAL: Female, 73 years old. X-RAY OF FOOT, THREE VIEWS -- Foot pain, right. Dropped heavy object on foot, pain by the toes. TECHNIQUE: 3 views of the right foot. COMPARISON: None. FINDINGS: Intact talus, calcaneus, and tarsal bones. There is a plantar calcaneal spur. Normal visualized subtalar, talonavicular, calcaneocuboid, tarsal and tarsometatarsal articulations. Normal metatarsi. 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 There is also degenerative arthrosis at the hallux sesamoid-first metatarsal head articulation. Normal interphalangeal joint of the great toe. Intact phalanges of the great toe. Normal second through fifth metatarsophalangeal joints. Normal interphalangeal joints and phalanges of the lesser toes. The soft tissue structures are unremarkable. There is no demonstrated fracture. 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 Degenerative arthrosis at the hallux sesamoid-first metatarsal head articulation. Electronically Signed: Blas Parker MD at 16:06 EST ,
== END | disposition home or self-care (01) ==
LOC: MTRAD 15:00
PROVIDERS: PCP Internal Medicine; Referring Provider Internal Medicine; Visit Provider Internal Medicine
DX: M79.671 Pain in right foot (principal)
CPT/HCPCS: 73630; 73660

== ENCOUNTER 2024-05-04 00:21 | Inpatient (IN) | payer MEDICARE, OTHER, SELFPAY ==
[2024-05-04] VITALS (14 sets, daily range): BP systolic 91–130; BP diastolic 32–51; PULSE 82–103; RESP 12–17; TEMP 36.4–36.8; O2SAT 97–100; BMI 38.7; BMI 39.1
--- NOTE | 2024-05-04 00:39 | CT_ITS ---
PROCEDURE: ABDOMEN/PELVIS W IV CONT ONLY REASON FOR EXAM: Rectal bleeding. Hypotension TECHNIQUE: Axial CT images of the abdomen and pelvis was performed with IV contrast enhancement, utilizing a standard protocol. Sagittal and coronal reconstructed images were performed for better visualization of the horizontal structures. IV CONTRAST: 95 cc of Isovue 370 COMPARISON: 09/20/2022 FINDINGS: Lung bases: Stable 2 mm pulmonary nodule within the right lower lobe, posterolaterally (series 2, image 6) 2 mm pulmonary nodule within the right lower lobe, laterally, more conspicuous on current examination, likely secondary to slice selection. (Series 2, image 17) Liver: Borderline hepatomegaly. No enhancing masses are identified. No intrahepatic ductal dilatation is seen. Gallbladder: Surgically absent. Spleen: Homogeneous enhancement. No splenomegaly. Pancreas: No cystic or solid masses identified. No peripancreatic inflammatory changes. Adrenals: No adrenal masses are identified bilaterally. Kidneys: Kidneys enhance symmetrically. Renal cortical thinning seen on the left, inferiorly. 1.7 cm renal cyst on the left more conspicuous on current examination given differences in technique. No hydronephrosis identified bilaterally. Bladder: Partially decompressed. No bladder calculi identified. No bladder wall thickening. Reproductive Organs: Unremarkable. Bowel: No bowel obstruction is identified. Scattered diverticula mostly involving the transverse and left colon. No pericolonic inflammatory changes. Appendix: Normal. Lymph nodes: No suspicious lymph node enlargement. Vasculature: Vascular calcifications within the abdominal aorta and iliac arteries. No abdominal aortic aneurysm is identified. Peritoneum / Retroperitoneum: No ascites. No free air. Bones: Are intact. Trace grade 1 anterolisthesis of L4 on L5. Mild spondylotic change involving the visualized lower thoracic and lower lumbar spine. CT/Abdomen/Pelvis W IV Cont ONLY IMPRESSION: 1. Borderline hepatomegaly 2. Left renal cyst measuring 1.7 cm, more conspicuous on current examination, g iven differences in technique. This is unchanged in size in the interval. 3. Negative for obstructive uropathy, bilaterally. 4. No bowel obstruction. Scattered diverticulosis mostly involving the transve rse and left colon, without gross surrounding inflammatory changes. 5. Additional findings, as detailed above One or more dose reduction techniques were used (e.g., Automated exposure contr ol, adjustment of the mA and/or kV according to patient size, use of iterative reconstruction technique). Reading Location: [facility]
--- NOTE | 2024-05-04 00:39 | EKG12_ITS ---
Test Reason : DYSRHYTHMIA Blood Pressure : */* mmHG Vent. Rate : 90 BPM Atrial Rate : 90 BPM P-R Int : 164 ms QRS Dur : 88 ms QT Int : 372 ms P-R-T Axes : 51 49 49 degrees QTcB Int : 455 ms Normal sinus rhythm Nonspecific ST abnormality Abnormal ECG Confirmed by Kike Weinberg ([id number]), editor index TALIB RICO ([id number]) on 05/04/2024 11:12:19 AM Referred By: Confirmed By: Kike Weinberg
--- NOTE | 2024-05-04 00:52 | EX.ED.DYSGE1 ---
HPI History of Present Illness Chief Complaint: GI Bleed Narrative Narrative: Chief complaint and HPI: GI bleed. 74-year-old female with past medical history of HTN, HLD, hypothyroidism, COPD presents for evaluation of GI bleed. Patient states that she developed some lower abdominal cramping this evening and felt as if she was going to have diarrhea. She states when she went to the bathroom she had 4 large episodes of bright red blood with dark clots. Patient has no history of diverticulitis or PUD. Previous surgeries are hemorrhoidal surgery as well as cholecystectomy. On EMS arrival patient was found to be hypotensive with SBP in the 50s. This is corrected with fluids. Patient endorses some mild lightheadedness but denies any chest pain or shortness of breath. Denies any fever, chills, vomiting, dysuria, hematuria. Patient is not on blood thinners. Review of systems: See HPI Medications: As listed on the chart Allergies: As listed on the chart PFSH: Per chart Vital signs: As listed on the chart. Reviewed. Physical exam: Gen: A&O x3, NAD Head: Normocephalic, atraumatic Eyes: No sclera icterus, conjunctiva clear ENT: Moist mucous membranes Neck: Trachea midline, No JVD CV: RRR, no murmurs, no peripheral edema Resp: Lungs CTA BL, no w/r/c GI: Abd soft, non-distended, mildly tender to palpation of bilateral lower quadrants, no r/r/g Rectal: Dried blood around anus. Normal tone and sensation. No Internal hemorrhoids palpated. No pain out of proportion. Stool is bloody. Musc: Full ROM, no deformity Skin: Warm, dry Neuro: Alert, oriented, grossly intact, sensation intact Psych: Cooperative, appropriate mood and affect [facility] Medical History CKD (chronic kidney disease), stage II Chronic anemia Neuropathy Diabetes mellitus, type 2 Esophageal reflux Allergic rhinitis Anxiety and depression COLD (chronic obstructive lung disease) Dysthymic disorder Tobacco use disorder Obesity IBS (irritable bowel syndrome) Hypothyroidism HTN (hypertension) HLD (hyperlipidemia) Medical History no medical history Home Medications ?Medication ?Instructions ?Recorded ?Last Taken ?Type Lisinopril/Hydrochlorothiazide 1 tab PO DAILY 06/21/14 11/12/18 History [Zestoretic 20/12.5 Tablet] fluticasone propionate 50 2 spray DAILY PRN allergy symptoms 06/21/14 11/12/18 History mcg/actuation nasal spray,suspension gabapentin 300 mg capsule 850 mg PO DAILY 06/21/14 11/12/18 History levothyroxine 125 mcg tablet 125 mcg PO DAILY 06/21/14 11/12/18 History metformin 850 mg tablet 850 mg PO DAILY 06/21/14 11/12/18 History montelukast 10 mg tablet 10 mg PO DAILY 06/21/14 11/12/18 History sertraline 100 mg tablet 100 mg PO DAILY 06/21/14 11/12/18 History simvastatin 10 mg tablet 10 mg PO QHS 06/21/14 11/12/18 History sitagliptin phosphate 100 mg 100 mg PO DAILY 06/21/14 11/12/18 History tablet (Januvia) Allergy/AdvReac Type Severity Reaction Status Date / Time metaxalone (From Skelaxin) Allergy Other Verified 05/04/24 00:29 Penicillins Allergy Hives Verified 05/04/24 00:29 Family History (Updated 05/04/24 @ 02:[address] Ngoc Bardales MD) Mother CAD (coronary artery disease) Heart disease Hypertension Myocardial infarction Diabetes Father Lung cancer Tobacco use history. Family History no significant family his Surgical History (Updated 05/04/24 @ 02:[address] Ngoc Bardales MD) History of ankle surgery S/P cataract extraction History of cholecystectomy Social History (Updated 05/04/24 @ 02:[address] Ngoc Bardales MD) household members: spouse Smoking Status: Current every day smoker tobacco type: cigarettes Smoking packs per day: 1 Smoking cigarettes per day: 20.0 alcohol intake: never substance use type: does not use EXAM Physical Exam Const Vital Signs: 05/04/24 00:23 05/04/24 01:22 05/04/24 02:00 Temperature 97.6 F L Temperature Source Axillary Pulse Rate 102 H 90 98 Respiratory Rate 15 17 Blood Pressure 130/50 H 115/45 L Blood Pressure Mean 76 68 Pulse Ox 98 98 98 Oxygen Delivery Method Room Air Room Air Room Air MDM MDM MDM Narrative Medical decision making narrative: 74-year-old female with past medical history of HTN, HLD, hypothyroidism, COPD presents for evaluation of GI bleed. Patient was reported to be hypotension via EMS prior to arrival. Hypotension resolved with fluids. On presentation patient is tachycardic. Her physical exam is positive for GI bleed. Differential diagnosis includes but is not limited to diverticulitis, diverticulosis, colitis, mesenteric ischemia, anemia, electrolyte abnormality. NS bolus, morphine, Zofran ordered for symptoms. GI workup ordered including CT abdomen pelvis. EKG reviewed see below. CBC with mild leukocytosis 11.1. Patient has baseline anemia with a hemoglobin of 9.6. CMP relatively unremarkable. No transaminitis. Lipase unremarkable. Troponin unremarkable. Lactic acid elevated at 2.2. Fluids running. CT abdomen pelvis shows borderline hepatomegaly. Left renal cyst. Negative for bowel obstruction. Patient has scattered diverticulosis mostly involving the transverse and left colon. No diverticulitis. Patient's GI bleed is likely secondary to diverticulosis. Patient has continued to have bloody bowel movements here in the emergency department. She got presyncopal with ambulation. Patient will warrant admission for endoscopy. Patient was discussed with Dr. Duran who accepted admission. Patient family were updated of all results confirmed understanding the plan. EKG: Interpreted by me/EM physician: EKG shows normal sinus rhythm with nonspecific ST changes. Heart rate 90. Impression: 1. Symptomatic GI bleed suspected secondary to diverticulosis 2. Reported hypotension, resolved 3. Lactic acidosis 4. Chronic anemia Lab Data Labs: Laboratory Results - last 24 hr 05/04/24 05/04/24 00:43 01:55 WBC 11.1 H RBC 3.04 L Hgb 9.6 L Hct 29.6 L MCV 97.4 MCH 31.6 MCHC 32.4 RDW Std Deviation 47.8 H RDW Coeff of Abena 13.3 Plt Count 205 MPV 11.0 Immature Gran % (Auto) 0.500 Neut % (Auto) 68.6 Lymph % (Auto) 24.8 [place] % (Auto) 4.2 Eos % (Auto) 1.4 Baso % (Auto) 0.5 Absolute Neuts (auto) 7.6 Absolute Lymphs (auto) 2.74 Nucleated RBC % 0 Sodium 142 Potassium 4.0 Chloride 108 H Carbon Dioxide 25.0 Anion Gap 9 BUN 25 H Creatinine 0.97 Estim Creat Clear Calc 56.69 Est GFR (MDRD) Af Amer 73 Est GFR (MDRD) Non-Af 60 BUN/Creatinine Ratio 25.7 H Glucose 162 H Lactic Acid 2.2 H* Calcium 8.9 Total Bilirubin 0.30 AST 14 L ALT 20 Alkaline Phosphatase 82 Troponin I High Sens 15 Total Protein 6.3 L Albumin 3.2 Globulin 3.1 Albumin/Globulin Ratio 1.0 Lipase 35 L Urine Color Straw Urine Clarity Clear Urine pH 6.0 Ur Specific [place] 1.010 Urine Protein 15 H Urine Glucose (UA) Normal Urine Ketones Negative Urine Occult Blood 50 H Urine Nitrite Negative Urine Bilirubin Negative Urine Urobilinogen Normal Ur Leukocyte Esterase 100 H Urine RBC 0-5 SEEN Urine WBC 50-100 SEEN Ur Squamous Epith Cells 0-5 SEEN Urine Bacteria 1+ Urine Mucus 0 SEEN Radiography Diagnostic Testing: Clinical Impression(s) from Imaging Studies Abdomen/Pelvis CT 05/04/24 00:39 IMPRESSION: 1. Borderline hepatomegaly 2. Left renal cyst measuring 1.7 cm, more conspicuous on current examination, given differences in technique. This is unchanged in size in the interval. 3. Negative for obstructive uropathy, bilaterally. 4. No bowel obstruction. Scattered diverticulosis mostly involving the transverse and left colon, without gross surrounding inflammatory changes. 5. Additional findings, as detailed above One or more dose reduction techniques were used (e.g., Automated exposure control, adjustment of the mA and/or kV according to patient size, use of iterative reconstruction technique). [facility] Discharge Plan Disposition Disposition: Acute Care Hospital [facility] Discharge Date/Time: 05/04/24 02:51
[2024-05-04] MEDS: Ondansetron 4 MG/2 ML Vial IV (00:56)
[2024-05-04] MEDS: Morphine 2 MG/ML Syringe IV (00:56)
[2024-05-04] MEDS: 0.9% Normal Saline (1000mL) 1,000 ML 999 ML IV ×2 (00:56→03:36)
[2024-05-04 00:59] LABS: Absolute Lymphocyte Count 2.74 X10^3/uL (0.83-4.51); Absolute Neutrophil Count 7.6 X10^3/uL (2.0-7.7); Basophil# 0.05 X10^3/uL; Basophil% 0.5 % (0-1); Eosinophil# 0.16 X10^3/uL; Eosinophils% 1.4 % (0-5); Hematocrit 29.6 % (37-47); Hemoglobin 9.6 g/dL (12.0-15.0); Lymphocyte # 2.74 X10^3/ul (0.83-4.51); Lymphocyte % 24.8 % (19-41); Mean Corp Hgb Conc 32.4 g/dL (32-36); Mean Corpuscular Hgb 31.6 pg (27.0-32.0); Mean Corpuscular Volume 97.4 fL (81-99); Monocyte# 0.46 X10^3/uL; Monocyte% 4.2 % (0-10); NRBC Flagged by Analyzer 0 % (0-5); Neutrophil # 7.59 X10^3/uL (2.7-7.7); Neutrophil % 68.6 % (47-70); Platelet Count 205 K/mm3 (150-450); RBC Distribution Width CV 13.3 % (11.6-14.6); RBC Distribution Width SD 47.8 fl (35.1-43.9); Red Blood Count 3.04 M/mm3 (4.2-5.4); White Blood Count 11.1 K/mm3 (4.4-11.0)
[2024-05-04 01:19] LABS: AST(SGOT) 14 U/L (15-37); Alanine Aminotransfer ALT/SGPT 20 U/L (13-56); Albumin, Serum 3.2 g/dL (3.2-5.0); Alkaline Phosphatase 82 U/L (45-117); Anion Gap 9 (5-15); BUN 25 mg/dL (7-18); BUN/Creat Ratio 25.7 RATIO (10-20); Calcium,Total 8.9 mg/dL (8.5-10.1); Chloride 108 mmol/L (98-107); Creatinine, Serum 0.97 mg/dL (0.55-1.02); EST Glomerular Filtration Rate 60 mL/min (>60); Est Glom Filt Rate - Afr Amer 73 mL/min (>60); Estimated Creatinine Clearance 56.69 ml/min; Globulin 3.1 g/dL (2.2-4.2); Glucose 162 mg/dL (74-106); Lipase 35 U/L (73-393); Protein, Total 6.3 g/dL (6.4-8.2); Sodium Level 142 mmol/L (136-145); Troponin-I HS 15 pg/mL (3.0-54.0)
[2024-05-04 01:31] LABS: Lactic Acid 2.2 mmol/L (0.4-1.9)
[2024-05-04 02:02] LABS: Mucous, Urine 0 SEEN /hpf (<or=2+)
[2024-05-04 02:04] LABS: Color, Urine Straw (Yellow); Glucose, Dipstick Normal (Normal); Ketone-Dipstick Negative (Negative); Leukocyte Esterase-Dipstick 100 /ul (Negative); Nitrite-Dipstick Negative (Negative); Occult Blood-Urine 50 /ul (Negative); Protein-Dipstick 15 mg/dl (Negative); Urine Bilirubin Dipstick Negative (Negative); Urine Clarity Clear (Clear); Urine Urobilinogen Normal (Normal)
--- NOTE | 2024-05-04 02:04 | PCM.HP.STD ---
HPI - General General Date of Admission: 05/04/24 Date of Service: 05/04/24 Chief Complaint: BRBPR, low BP per EMS, lightheadedness. HPI Narrative The patient is a 74 y/o F w/ PMHx: Obesity, HTN, HLD, GERD, COPD with allergic rhinitis, Hypothyroidism, Tobacco use, Diabetes mellitus type II with chronic neuropathy, Dysthymic disorder/Anxiety and Depression, Chronic normocytic anemia, CKD stage II per GFR trending who presents to the [facility] ED on 05/04/2024 with history of onset of lower abdominal cramping in the evening the day prior with sensation of likely onset diarrhea prompting her to the bathroom where she ended up having 4 large episodes of bright red blood with dark clots reporting that she does have a previous history of a hemorrhoidectomy prompting EMS call who noted upon arrival that her blood pressure was low reportedly SBP in the 50s improving quickly with IV fluids with associated mild lightheadedness prompting ED evaluation. Workup in the ED included T97.6 Axillary, heart rate 102, BP 130/50, 98% on room air, CBC with WC 11.1, hemoglobin 9.6, MCV 97.4, platelet 2 5 without marked shift, CMP with chloride 108, BUN/creatinine 25/0.97, GFR 60, glucose 162, hepatic profile unremarkable, troponin 15, lactic acid 2.2, CT abdomen and pelvis with borderline hepatomegaly, left renal cyst measuring 1.7 cm unchanged in size in the interval, negative for obstructive uropathy bilaterally, no evidence of bowel obstruction, scattered diverticulosis mostly involving the transverse and left colon without any gross surrounding inflammatory changes. In the ED patient ministered 1 L normal saline, morphine 2 mg IV x 1 and Zofran 4 mg IV x 1. [facility] Medical History CKD (chronic kidney disease), stage II Chronic anemia Neuropathy Diabetes mellitus, type 2 Esophageal reflux Allergic rhinitis Anxiety and depression COLD (chronic obstructive lung disease) Dysthymic disorder Tobacco use disorder Obesity IBS (irritable bowel syndrome) Hypothyroidism HTN (hypertension) HLD (hyperlipidemia) Medical History no medical history Home Medications ?Medication ?Instructions ?Recorded ?Last Taken ?Type Lisinopril/Hydrochlorothiazide 1 tab PO DAILY 06/21/14 11/12/18 History [Zestoretic 20/12.5 Tablet] fluticasone propionate 50 2 spray DAILY 06/21/14 11/12/18 History mcg/actuation nasal spray,suspension gabapentin 300 mg capsule 300 mg PO DAILY 06/21/14 11/12/18 History levothyroxine 125 mcg tablet 125 mcg PO DAILY 06/21/14 11/12/18 History metformin 850 mg tablet 850 mg PO BID 06/21/14 11/12/18 History montelukast 10 mg tablet 10 mg PO DAILY 06/21/14 11/12/18 History sertraline 100 mg tablet 100 mg PO DAILY 06/21/14 11/12/18 History simvastatin 10 mg tablet 10 mg PO QHS 06/21/14 11/12/18 History sitagliptin phosphate 100 mg 100 mg PO DAILY 06/21/14 11/12/18 History tablet (Januvia) albuterol sulfate 90 mcg/actuation 1 - 2 puff inhalation Q4H PRN PRN 05/26/17 Unknown Rx aerosol inhaler (Ventolin HFA) Wheezing ##1 oxycodone-acetaminophen 5 mg-325 1 tab PO Q6H PRN pain 3 days #12 10/08/20 Unknown Rx mg tablet (Percocet) tabs Allergy/AdvReac Type Severity Reaction Status Date / Time metaxalone (From Skelaxin) Allergy Other Verified 05/04/24 00:29 Penicillins Allergy Hives Verified 05/04/24 00:29 Family History (Updated 05/04/24 @ 02:[address] Ngoc Bardales MD) Mother CAD (coronary artery disease) Heart disease Hypertension Myocardial infarction Diabetes Father Lung cancer Tobacco use history. Family History no significant family his Surgical History (Updated 05/04/24 @ 02:[address] Ngoc Bardales MD) History of ankle surgery S/P cataract extraction History of cholecystectomy Social History (Updated 05/04/24 @ 02:[address] Ngoc Bardales MD) household members: spouse Smoking Status: Current every day smoker tobacco type: cigarettes Smoking packs per day: 1 Smoking cigarettes per day: 20.0 alcohol intake: never substance use type: does not use ROS ROS Narrative Admission Review of Systems: CONSTITUTIONAL: No weight loss, fever, chills, + weakness or fatigue. HEENT: + Lightheadedness. Eyes: No visual loss, blurred vision, double vision or yellow sclerae. Ears, Nose, Throat: No hearing loss, sneezing, congestion, runny nose or sore throat. SKIN: No rash or itching, lesions, wounds. CARDIOVASCULAR: + Lightheadedness. No chest pain, chest pressure or chest discomfort, palpitations, edema, orthopnea, syncopal events. RESPIRATORY: No shortness of breath, cough or sputum, wheezing, hemoptysis. GASTROINTESTINAL: + Lower abdominal cramping followed by 4 bouts of bright red blood with clots. No anorexia, nausea, vomiting, melena. GENITOURINARY: No dysuria, frequency, urgency or retention. NEUROLOGICAL: + Lightheadedness. No headache, syncope, paralysis, ataxia, numbness or tingling in the extremities, focal weakness, change in bowel or bladder control, seizure. MUSCULOSKELETAL: + muscle, back pain, joint pain or stiffness. HEMATOLOGIC: + Chronic anemia, acute GI bleeding reported as noted. LYMPHATICS: No enlarged nodes. No history of splenectomy. PSYCHIATRIC: + History of anxiety and depression. ENDOCRINOLOGIC: No reports of sweating, cold or heat intolerance. No polyuria or polydipsia. ALLERGIES: + History of allergic rhinitis. Vital Signs Vital Signs Vital Signs: 05/04/24 00:23 05/04/24 01:22 05/04/24 02:00 Temperature 97.6 F L Temperature Source Axillary Pulse Rate 102 H 90 98 Respiratory Rate 15 17 Blood Pressure 130/50 H 115/45 L Blood Pressure Mean 76 68 Pulse Ox 98 98 98 Oxygen Delivery Method Room Air Room Air Room Air Weight Weight: 211 lb 13.828 oz Body Mass Index (BMI) 38.7 Physical Exam Narrative Physical Examination: General: Awake, alert, oriented x 3 and cooperative, seated upright in ED bed, fatigued but no acute distress, denies any current abdominal cramping. Skin: Normal color, normal turgor, no icterus, no cyanosis. HEENT: AT/NC, EOMI, PERRLA, mildly dry MM, no carotid bruits or JVD noted. Lungs: Mildly diminished, greater bases, appropriate effort, no rales, ronchi or wheezing. Heart: Improved, currently regular rate and rhythm; no gallop, rub audible. Abdomen: Soft, obese, NTTP, ND, hyperactive BS, no appreciated HSM. Extremities: No cyanosis, clubbing, or edema. Neurological: Patient awake, alert, oriented as noted, cognitive function intact; pupils equally reactive to light and accommodation, cranial grossly normal, moving all 4 extremities, no focal deficits, strength mildly to moderately globally decreased secondary to acute presentation complaints. Psychiatric: Affect appears fatigued otherwise normal, no acute evidence of depressive or anxiety feelings but does have underlying history. Results Lab / Micro Data 05/04/24 00:43 05/04/24 00:43 Labs: Laboratory Results - last 24 hr 05/04/24 00:43: WBC 11.1 H, RBC 3.04 L, Hgb 9.6 L, Hct 29.6 L, MCV 97.4, MCH 31.6, MCHC 32.4, RDW Std Deviation 47.8 H, RDW Coeff of Abena 13.3, Plt Count 205, MPV 11.0, Immature Gran % (Auto) 0.500, Neut % (Auto) 68.6, Lymph % (Auto) 24.8, [place] % (Auto) 4.2, Eos % (Auto) 1.4, Baso % (Auto) 0.5, Absolute Neuts (auto) 7.6, Absolute Lymphs (auto) 2.74, Nucleated RBC % 0, Sodium 142, Potassium 4.0, Chloride 108 H, Carbon Dioxide 25.0, Anion Gap 9, BUN 25 H, Creatinine 0.97, Estim Creat Clear Calc 56.69, Est GFR (MDRD) Af Amer 73, Est GFR (MDRD) Non-Af 60, BUN/Creatinine Ratio 25.7 H, Glucose 162 H, Lactic Acid 2.2 H*, Calcium 8.9, Total Bilirubin 0.30, AST 14 L, ALT 20, Alkaline Phosphatase 82, Troponin I High Sens 15, Total Protein 6.3 L, Albumin 3.2, Globulin 3.1, Albumin/Globulin Ratio 1.0, Lipase 35 L Micro: Microbiology 05/04/24 00:40 Stool Stool Occult Blood ([facility]) - Final Occult Blood Positive Imaging Radiology Impression Abdomen/Pelvis CT 05/04/24 00:39 IMPRESSION: 1. Borderline hepatomegaly 2. Left renal cyst measuring 1.7 cm, more conspicuous on current examination, given differences in technique. This is unchanged in size in the interval. 3. Negative for obstructive uropathy, bilaterally. 4. No bowel obstruction. Scattered diverticulosis mostly involving the transverse and left colon, without gross surrounding inflammatory changes. 5. Additional findings, as detailed above One or more dose reduction techniques were used (e.g., Automated exposure control, adjustment of the mA and/or kV according to patient size, use of iterative reconstruction technique). Reading Location: [facility] Assessment & Plan Assessment/Plan (1) GI bleed: PLAN: Plan The patient is a 74 y/o F w/ PMHx: Obesity, HTN, HLD, GERD, COPD with allergic rhinitis, Hypothyroidism, Tobacco use, Diabetes mellitus type II with chronic neuropathy, Dysthymic disorder/Anxiety and Depression, Chronic normocytic anemia, CKD stage II per GFR trending who presents to the [facility] ED on 05/04/2024 with history of onset of lower abdominal cramping in the evening the day prior with sensation of likely onset diarrhea prompting her to the bathroom where she ended up having 4 large episodes of bright red blood with dark clots reporting that she does have a previous history of a hemorrhoidectomy prompting EMS call who noted upon arrival that her blood pressure was low reportedly SBP in the 50s improving quickly with IV fluids with associated mild lightheadedness prompting ED evaluation. #1. Acute GI Bleed, high suspicion diverticular etiology with chronic normocytic anemia (Admission Hgb 9.6, prior 01/29/22 Hgb 10.1) with EMS reported transient hypotension responsive to IV fluids with mild lactic acidosis suspected secondary primarily to transient hypotension/volume status: Given BP improved will admit to medical surgical floor on telemetry, maintain on IVFs, will continue to trend H&H, although distal given n.p.o. status will maintain on IV PPI, will continue to monitor and if patient has no further event then will initiate clear liquid advance diet as tolerated however if bleeding persists or hemoglobin drops then low threshold to involve gastroenterology. #2. Incidentally noted left renal cyst, stable from previous: CT imaging with left renal cyst measuring 1.7 cm, unchanged in size from previous per radiology report. #3. Hypertension: Will temporally hold patient diuretic given planned hydration, as needed IV hydralazine in the interim. #4. Hyperlipidemia: We will continue patient on statin therapy. #5. Chronic Kidney Disease Stage II per GFR trending: Admission BUN/Cr 25/0.97, GFR 60, baseline renal function 0.7-1.3 although from lab review primarily 0.8-1.0, repeat BMP in AM. #6. Diabetes mellitus type II with chronic neuropathy: Hold oral home regimen, n.p.o. status, accu checks w/ ISS, continue home gabapentin regimen. #7. Chronic COPD: Per current list not on any chronic inhaler regimen, PRN albuterol, HOB, IS parameters. #8. Allergic rhinitis: We will continue patient home montelukast and fluticasone home regimen. #9. Tobacco Abuse: Encouraged cessation, inpatient consultation per RT, NR if desired. #10. Hypothyroidism: We will continue patient on levothyroxine regimen. #11. Obesity: Weight loss and lifestyle changes encouraged. #12. Dysthymia/anxiety and depression: We will continue patient on sertraline regimen #13. GERD: Will maintain the IV PPI as noted. #14. DVT prophylaxis: SCDs. #15. CODE status: Patient does not have healthcare power of estimator binding or living will in place but notes her who is present would be her medical decision-maker if necessary. Discussed CODE status at length including difference between FULL code, DNR-CCA and DNR-CC status. Following discussions about the differences in these status, requested Full Code status. Charges/Coding Visit Charges Inpatient E&M: 37485 Init Hosp L3
[2024-05-04 02:12] LABS: Bacteria 1+ /hpf (None Seen); Red Blood Cells-Urine 0-5 SEEN /hpf (0-5); Squamous Epithelial Cells - UA 0-5 SEEN /hpf (5-10); White Blood Cells 50-100 SEEN /hpf (0-5)
[2024-05-04] MEDS: 0.9% Normal Saline (1000mL) 1,000 ML 125 ML IV (03:59)
[2024-05-04] MEDS: Pantoprazole Sodium 40 MG in 0.9% Normal Saline (100mL MB+) 100 ML 330 MG IV ×3 (04:03→21:14)
[2024-05-04 04:09] LABS: Bedside Glucose 151 mg/dL (74-106)
[2024-05-04 04:54] LABS: Reflex Lactate? Y
[2024-05-04 05:17] LABS: Hematocrit 22.5 % (37-47); Hemoglobin 7.4 g/dL (12.0-15.0)
[2024-05-04 05:42] LABS: Lactic Acid 1.2 mmol/L (0.4-1.9)
[2024-05-04 05:50] LABS: ALB/GLOB Ratio 1.2 RATIO (0.9-2.4); AST(SGOT) 10 U/L (15-37); Alanine Aminotransfer ALT/SGPT 17 U/L (13-56); Albumin, Serum 2.8 g/dL (3.2-5.0); Alkaline Phosphatase 64 U/L (45-117); Anion Gap 5 (5-15); BUN 24 mg/dL (7-18); BUN/Creat Ratio 27.6 RATIO (10-20); Calcium,Total 8.2 mg/dL (8.5-10.1); Chloride 114 mmol/L (98-107); Creatinine, Serum 0.87 mg/dL (0.55-1.02); EST Glomerular Filtration Rate 68 mL/min (>60); Est Glom Filt Rate - Afr Amer 83 mL/min (>60); Estimated Creatinine Clearance 61.12 ml/min; Globulin 2.4 g/dL (2.2-4.2); Glucose 132 mg/dL (74-106); Potassium 4.3 mmol/L (3.5-5.1); Protein, Total 5.2 g/dL (6.4-8.2); Sodium Level 141 mmol/L (136-145)
[2024-05-04] MEDS: Levothyroxine 125 MCG Tablet PO (06:14)
[2024-05-04] MEDS: Fluticasone 0.05% 1 SPRAY NASAL.SRY 2 SPRAY NASAL (07:47)
[2024-05-04] MEDS: Sertraline 100 MG Tablet PO (07:48)
[2024-05-04] MEDS: Montelukast 10 MG Tablet PO (07:48)
[2024-05-04 08:14] LABS: Bedside Glucose 126 mg/dL (74-106)
--- NOTE | 2024-05-04 09:03 | PN.HOSP_ITS ---
Reason for Visit Reason for Visit: Diagnoses Gastrointestinal hemorrhage, unspecified (05/04/24) Subjective Subjective Having ongoing bleeding, but less frequently. Still with abdominal discomfort. Never had bleeding like this before. Objective Data Objective Data Vital Signs: Vital Signs Temp Pulse Resp BP Pulse Ox O2 Del Method 36.6 C 84 16 123/51 H 98 Room Air 05/04/24 03:09 05/04/24 03:09 05/04/24 03:09 05/04/24 03:09 05/04/24 03:09 05/04/24 03:10 Oxygen Delivery Method Room Air Weight: 93.9 kg Body Mass Index (BMI) 39.1 Intake & Output: Intake and Output for Last 24 Hours 05/02/24 05/03/24 05/04/24 23:59 23:59 23:59 Intake Total 3870 / 3870 Balance 3870 / 3870 Lab / Micro Data 05/04/24 10:21 05/04/24 05:08 Labs: Laboratory Results - last 24 hr 05/04/24 00:43: WBC 11.1 H, RBC 3.04 L, Hgb 9.6 L, Hct 29.6 L, MCV 97.4, MCH 31.6, MCHC 32.4, RDW Std Deviation 47.8 H, RDW Coeff of Abena 13.3, Plt Count 205, MPV 11.0, Immature Gran % (Auto) 0.500, Neut % (Auto) 68.6, Lymph % (Auto) 24.8, Kinney % (Auto) 4.2, Eos % (Auto) 1.4, Baso % (Auto) 0.5, Absolute Neuts (auto) 7.6, Absolute Lymphs (auto) 2.74, Nucleated RBC % 0, Sodium 142, Potassium 4.0, Chloride 108 H, Carbon Dioxide 25.0, Anion Gap 9, BUN 25 H, Creatinine 0.97, Estim Creat Clear Calc 56.69, Est GFR (MDRD) Af Amer 73, Est GFR (MDRD) Non-Af 60, BUN/Creatinine Ratio 25.7 H, Glucose 162 H, Lactic Acid 2.2 H*, Calcium 8.9, Total Bilirubin 0.30, AST 14 L, ALT 20, Alkaline Phosphatase 82, Troponin I High Sens 15, Total Protein 6.3 L, Albumin 3.2, Globulin 3.1, Albumin/Globulin Ratio 1.0, Lipase 35 L 05/04/24 01:55: Urine Color Straw, Urine Clarity Clear, Urine pH 6.0, Ur Specific Merrill 1.010, Urine Protein 15 H, Urine Glucose (UA) Normal, Urine Ketones Negative, Urine Occult Blood 50 H, Urine Nitrite Negative, Urine Bilirubin Negative, Urine Urobilinogen Normal, Ur Leukocyte Esterase 100 H, Urine RBC 0-5 SEEN, Urine WBC 50-100 SEEN, Ur Squamous Epith Cells 0-5 SEEN, Urine Bacteria 1+, Urine Mucus 0 SEEN 05/04/24 03:48: POC Glucose 151 H 05/04/24 05:08: Hgb 7.4 L, Hct 22.5 L, Sodium 141, Potassium 4.3, Chloride 114 H , Carbon Dioxide 23.0, Anion Gap 5, BUN 24 H, Creatinine 0.87, Estim Creat Clear Calc 61.12, Est GFR (MDRD) Af Amer 83, Est GFR (MDRD) Non-Af 68, BUN/Creatinine Ratio 27.6 H, Glucose 132 H, Lactic Acid 1.2, Calcium 8.2 L, Total Bilirubin 0.30, AST 10 L, ALT 17, Alkaline Phosphatase 64, Total Protein 5.2 L, Albumin 2.8 L, Globulin 2.4, Albumin/Globulin Ratio 1.2 05/04/24 07:55: POC Glucose 126 H Micro: Microbiology 05/04/24 00:40 Stool Stool Occult Blood (SARITA) - Final Occult Blood Positive Radiography Diagnostic Testing: Radiology Impression Abdomen/Pelvis CT 05/04/24 00:39 IMPRESSION: 1. Borderline hepatomegaly 2. Left renal cyst measuring 1.7 cm, more conspicuous on current examination, given differences in technique. This is unchanged in size in the interval. 3. Negative for obstructive uropathy, bilaterally. 4. No bowel obstruction. Scattered diverticulosis mostly involving the transverse and left colon, without gross surrounding inflammatory changes. 5. Additional findings, as detailed above One or more dose reduction techniques were used (e.g., Automated exposure control, adjustment of the mA and/or kV according to patient size, use of iterative reconstruction technique). Reading Location: [facility] Physical Exam Const alert and no apparent distress HEENT head/scalp atraumatic and moist oral mucous membranes Resp normal respiratory effort, no retractions, no use of accessory muscles and clear to auscultation bilaterally Cardio regular rate, regular rhythm, S1 normal heart sound and S2 normal heart sound GI normal to inspection, nondistended, normoactive bowel sounds and soft to palpation GI Narrative: slight distention. TTP Extremity normal to inspection and full ROM Neuro Sensorium / Orientation: awake and alert Assessment & Plan Assessment/Plan (1) GI bleed: PLAN: Plan Acute GI Bleed * high suspicion diverticular etiology with chronic normocytic anemia (Admission Hgb 9.6, prior 01/29/22 Hgb 10.1) * CT a/p negative. If ongoing, may need to perform CTA of A and P. ABLA * Hg 9.6 down to 7.4 and 7.3 * monitor Chronic conditions: * Incidentally noted left renal cyst, stable from previous: CT imaging with left renal cyst measuring 1.7 cm, unchanged in size from previous per radiology report. * Hypertension: Will temporally hold patient diuretic given planned hydration, as needed IV hydralazine in the interim. * Hyperlipidemia: We will continue patient on statin therapy. * Chronic Kidney Disease Stage II per GFR trending: Admission BUN/Cr 25/0.97, GFR 60, baseline renal function 0.7-1.3 although from lab review primarily 0.8-1.0, repeat BMP in AM. * Diabetes mellitus type II with chronic neuropathy: Hold oral home regimen, n.p.o. status, accu checks w/ ISS, continue home gabapentin regimen. * Chronic COPD: Per current list not on any chronic inhaler regimen, PRN albuterol, HOB, IS parameters. * Allergic rhinitis: We will continue patient home montelukast and fluticasone home regimen. * Tobacco Abuse: Encouraged cessation, inpatient consultation per RT, NR if desired. * Hypothyroidism: We will continue patient on levothyroxine regimen. * Obesity: Weight loss and lifestyle changes encouraged. * Dysthymia/anxiety and depression: We will continue patient on sertraline regimen * GERD: Will maintain the IV PPI as noted. DVT prophylaxis: SCDs. Charges/Coding Visit Charges Inpatient E&M: 19000 Subs Hosp L2
[2024-05-04 11:03] LABS: Hematocrit 22.4 % (37-47); Hemoglobin 7.3 g/dL (12.0-15.0)
[2024-05-04 14:08] LABS: Hematocrit 21.3 % (37-47); Hemoglobin 7.1 g/dL (12.0-15.0)
[2024-05-04 15:01] LABS: Bedside Glucose 123 mg/dL (74-106)
--- NOTE | 2024-05-04 16:03 | CHAPLAIN ---
Type of Pastoral Visit _x__ Initial Visit ___ Follow-up Visit ___ On-call Visit ___ General Patient Visit ___ Spiritual Assessment ___ Family Conference ___ Bereavement ___ Rapid Response ___ Code Blue ___ Other (describe below) Pastoral Care Referral From _x__ Patient ___ Family ___ Nurse ___ Physician ___ Case Manager Specialist ___ Security Support Analyst ___ Other (describe below) Sacrament/Intervention ___ Active listening ___ Anointing ___ Druze ___ Bereavement ___ Communion ___ Charmaine exploration ___ ___ Life review _x__ Prayer ___ Reconciliation ___ Sacrament of Sick _x__ Supportive presence ___ Wedding ___ Other (describe below) Pastoral Comments patient was resting but awake; pt admits to not having been able to sleep last night but states that a prayer would be welcome at this time; pt is expected to have a scope and acknowledges that spouse and family members are also worried for her; pt is not connected to a charmaine community at this time; prayer and presence given for this brief encounter
--- NOTE | 2024-05-04 16:19 | CASEMGMT ---
Met with patient to complete CASTANON form. CASTANON form explained to patient who voiced understanding and signed form. Original form placed in pt?s chart and copy provided to patient. Theodora Lyons, Discharge Planning Asst
[2024-05-04] MEDS: Atorvastatin Calcium 10 MG Tablet 5 MG PO (21:42)
[2024-05-04] MEDS: Insulin Lispro 100 UNIT/ML INSULN.PEN SC (21:43)
[2024-05-04 22:08] LABS: Bedside Glucose 152 mg/dL (74-106)
[2024-05-04] MEDS: 0.9% Normal Saline (1000mL) 1,000 ML 100 ML IV (22:43)
[2024-05-05] VITALS (22 sets, daily range): BP systolic 107–143; BP diastolic 41–103; PULSE 65–119; RESP 11–22; TEMP 36.2–37.2; O2SAT 95–100; BMI 40.5
[2024-05-05 03:01] LABS: Bedside Glucose 149 mg/dL (74-106)
[2024-05-05] MEDS: Levothyroxine 125 MCG Tablet PO (04:41)
[2024-05-05 07:17] LABS: Absolute Lymphocyte Count 4.44 X10^3/uL (0.83-4.51); Absolute Neutrophil Count 7.4 X10^3/uL (2.0-7.7); Basophil# 0.05 X10^3/uL; Basophil% 0.4 % (0-1); Eosinophil# 0.09 X10^3/uL; Eosinophils% 0.7 % (0-5); Hematocrit 15.8 % (37-47); Lymphocyte # 4.44 X10^3/ul (0.83-4.51); Lymphocyte % 35.2 % (19-41); Mean Corp Hgb Conc 33.5 g/dL (32-36); Mean Corpuscular Hgb 31.9 pg (27.0-32.0); Mean Corpuscular Volume 95.2 fL (81-99); Mean Platelet Vol. 10.7 fl (6.2-12.0); Monocyte# 0.61 X10^3/uL; Monocyte% 4.8 % (0-10); NRBC Flagged by Analyzer 0.2 % (0-5); Neutrophil # 7.36 X10^3/uL (2.7-7.7); Neutrophil % 58.4 % (47-70); POSITIVE COUNT YES; Platelet Count 171 K/mm3 (150-450); RBC Distribution Width CV 13.8 % (11.6-14.6); RBC Distribution Width SD 47.3 fl (35.1-43.9); Red Blood Count 1.66 M/mm3 (4.2-5.4); White Blood Count 12.6 K/mm3 (4.4-11.0)
[2024-05-05 07:29] LABS: Differential Indicated SCAN CRITERIA MET; Hemoglobin 5.3 g/dL (12.0-15.0)
--- NOTE | 2024-05-05 08:13 | CT_ITS ---
EXAM: CT Angiography Chest, Abdomen and Pelvis Without and With Intravenous Contrast CLINICAL INDICATION: TECHNIQUE: Axial computed tomographic angiography images of the chest, abdomen and pelvis without and with intravenous contrast. This CT exam was performed using one or more of the following dose reduction techniques: automated exposure control, adjustment of the mA and/or kV according to patient size, and/or use of iterative reconstruction technique. MIP reconstructed images were created and reviewed. COMPARISON: No relevant prior studies available. FINDINGS: VASCULATURE: AORTA: Scattered calcified atherosclerotic disease of the aorta without aneurysm or dissection. PULMONARY ARTERIES: Unremarkable as visualized. No pulmonary embolism is identified. GREAT VESSELS OF AORTIC ARCH: No acute findings. No dissection. No arterial occlusion or significant stenosis. CELIAC TRUNK AND MESENTERIC ARTERIES: No acute findings. No occlusion or significant stenosis. RENAL ARTERIES: No acute findings. No occlusion or significant stenosis. ILIAC ARTERIES: No acute findings. No occlusion or significant stenosis. CHEST: LUNGS AND PLEURAL SPACES: Unremarkable. No mass. No consolidation. No significant effusion. No pneumothorax. HEART: Unremarkable. No cardiomegaly. No significant pericardial effusion. ABDOMEN: LIVER: Hepatomegaly with fatty infiltration. GALLBLADDER AND BILE DUCTS: Unremarkable. No calcified stones. No ductal dilation. PANCREAS: Unremarkable. No ductal dilation. No mass. SPLEEN: Unremarkable. No splenomegaly. ADRENALS: Unremarkable. No mass. KIDNEYS AND URETERS: Simple left renal cyst. No obstructing stones. No hydronephrosis. STOMACH AND BOWEL: Fecal retention in the colon consistent with constipation. Colonic diverticulosis without acute diverticulitis. No obstruction. PELVIS: APPENDIX: No findings to suggest acute appendicitis. BLADDER: Unremarkable. No stones. No mass. REPRODUCTIVE: Unremarkable as visualized. CHEST, ABDOMEN and PELVIS: INTRAPERITONEAL SPACE: Unremarkable. No significant fluid collection. No free air. BONES/JOINTS: No acute fracture. No dislocation. SOFT TISSUES: Unremarkable. LYMPH NODES: Unremarkable. No enlarged lymph nodes. CT/CTA Abd/Pelvis W/WO Contrast IMPRESSION: 1. Scattered calcified atherosclerotic disease of the aorta without aneurysm o r dissection. 2. Fecal retention in the colon consistent with constipation. 3. Hepatomegaly with fatty infiltration. 4. Colonic diverticulosis without acute diverticulitis. Reading Location: [facility]
[2024-05-05] MEDS: Ondansetron 4 MG/2 ML Vial IV ×2 (08:22→20:00)
[2024-05-05] MEDS: 0.9% Normal Saline (100mL Bag) 100 ML 15 ML IV (09:33)
[2024-05-05] MEDS: Pantoprazole Sodium 40 MG in 0.9% Normal Saline (100mL MB+) 100 ML 330 MG IV ×2 (09:34→21:19)
[2024-05-05] MEDS: 0.9% Saline Lock 10 ML Syringe IV ×2 (09:35→20:00)
--- NOTE | 2024-05-05 09:38 | PN.HOSP_ITS ---
Reason for Visit Reason for Visit: Diagnoses Gastrointestinal hemorrhage, unspecified (05/04/24) Subjective Subjective Had bleeding this AM. Hg 5.3. Objective Data Objective Data Vital Signs: Vital Signs Temp Pulse Resp BP Pulse Ox O2 Del Method O2 Flow Rate 36.7 C 101 H 22 H 117/47 L 100 Nasal Cannula 2 05/05/24 09:25 05/05/24 09:25 05/05/24 09:25 05/05/24 09:25 05/05/24 09:05/05/24 09:05/05/24 09:25 Oxygen Flow Rate (L/min) 2 Oxygen Delivery Method Nasal Cannula Weight: 97.3 kg Body Mass Index (BMI) 40.5 Intake & Output: Intake and Output for Last 24 Hours 05/03/24 05/04/24 05/05/24 23:59 23:59 23:59 Intake Total 5230 / 5230 971.67 / 971.67 Balance 5230 / 5230 971.67 / 971.67 Lab / Micro Data 05/05/24 07:11 05/04/24 05:08 Labs: Laboratory Results - last 24 hr 05/04/24 00:42: Blood Type O POSITIVE, Antibody Screen NEGATIVE, Crossmatch See Detail 05/04/24 10:21: Hgb 7.3 L, Hct 22.4 L 05/04/24 13:47: Hgb 7.1 L, Hct 21.3 L 05/04/24 14:42: POC Glucose 123 H 05/04/24 21:38: POC Glucose 152 H 05/05/24 02:43: POC Glucose 149 H 05/05/24 07:11: WBC 12.6 H, RBC 1.66 L, Hgb 5.3 L*, Hct 15.8 L, MCV 95.2, MCH 31.9, MCHC 33.5, RDW Std Deviation 47.3 H, RDW Coeff of Abena 13.8, Plt Count 171, MPV 10.7, Immature Gran % (Auto) 0.500, Neut % (Auto) 58.4, Lymph % (Auto) 35.2, Piatt % (Auto) 4.8, Eos % (Auto) 0.7, Baso % (Auto) 0.4, Absolute Neuts (auto) 7.4, Absolute Lymphs (auto) 4.44, Nucleated RBC % 0.2, Differential Comment COMMENT, Diff Path Review May foll Micro: Microbiology 05/04/24 00:40 Stool Stool Occult Blood (SARITA) - Final Occult Blood Positive Physical Exam Const alert and no apparent distress HEENT head/scalp atraumatic Resp normal respiratory effort, no retractions, no use of accessory muscles and clear to auscultation bilaterally Cardio regular rate, S1 normal heart sound and S2 normal heart sound GI normal to inspection, nondistended, normoactive bowel sounds, soft to palpation, non-tender, non-distended and hepatosplenomegaly Extremity normal to inspection Neuro Sensorium / Orientation: awake and alert Assessment & Plan Assessment/Plan (1) GI bleed: PLAN: Plan Acute GI Bleed * high suspicion diverticular etiology with chronic normocytic anemia (Admission Hgb 9.6, prior 01/29/22 Hgb 10.1), though continue IV PPI. * CT a/p negative. * Check CTA A/P. Consult GI. Friend to see. ABLA * Hg 9.6 down to 5.3. * monitor * T+C 3 units. Transfuse 2 units. Chest pain * anemia v anxiety * EKG showed no acute process. * check troponins Chronic conditions: * Incidentally noted left renal cyst, stable from previous: CT imaging with left renal cyst measuring 1.7 cm, unchanged in size from previous per radiology report. * Hypertension: Will temporally hold patient diuretic given planned hydration, as needed IV hydralazine in the interim. * Hyperlipidemia: We will continue patient on statin therapy. * Chronic Kidney Disease Stage II per GFR trending: Admission BUN/Cr 25/0.97, GFR 60, baseline renal function 0.7-1.3 although from lab review primarily 0.8-1.0, repeat BMP in AM. * Diabetes mellitus type II with chronic neuropathy: Hold oral home regimen, n.p.o. status, accu checks w/ ISS, continue home gabapentin regimen. * Chronic COPD: Per current list not on any chronic inhaler regimen, PRN albuterol, HOB, IS parameters. * Allergic rhinitis: We will continue patient home montelukast and fluticasone home regimen. * Tobacco Abuse: Encouraged cessation, inpatient consultation per RT, NR if desired. * Hypothyroidism: We will continue patient on levothyroxine regimen. * Obesity: Weight loss and lifestyle changes encouraged. * Dysthymia/anxiety and depression: We will continue patient on sertraline regimen * GERD: Will maintain the IV PPI as noted. DVT prophylaxis: SCDs. Charges/Coding Visit Charges Inpatient E&M: 60146 Subs Hosp L2
--- NOTE | 2024-05-05 09:47 | NURSING ---
warehouse receiver updated orderd to transfer to PCU, Hbg 5.3 getting blood, chestpain, pain resolving. warehouse receiver response ok, will work on it. no bed open currently.
[2024-05-05 10:55] LABS: Troponin-I HS 174 pg/mL (3.0-54.0)
--- NOTE | 2024-05-05 11:00 | NURSING ---
0947: nursing utilization supervisor Eboni cortexted regarding needing a PCU bed for transfer out. 1019: per nursing utilization supervisor Eboni replies okay, will work on it. No bed currently open [id number]: cortext to nursing utilization supervisor Eboni: troponin positive on [id number] whats bed availability look like?
--- NOTE | 2024-05-05 11:23 | NURSING ---
cortexted nursing cryptologic supervisor any insight on transfer? per nursing cryptologic supervisor i'm working on it.
--- NOTE | 2024-05-05 11:40 | NURSING ---
1st unit of blood done, flushing tubing. sent for next unit
[2024-05-05 11:47] LABS: Bedside Glucose 133 mg/dL (74-106)
--- NOTE | 2024-05-05 12:33 | NURSING ---
primary RN updated per boiler house mechanic pt will go to 114 when room is clean
--- NOTE | 2024-05-05 12:42 | NURSING ---
attempted to give report to charge nurse Elana BAUTISTA and Christy RN both are at lunch and unable to take report will call to said nurse when they are available to received report. Lomax states the room is not clean yet.
--- NOTE | 2024-05-05 13:22 | NURSING ---
now flushing blood tubing. pt to PCU per bed
--- NOTE | 2024-05-05 13:49 | NURSING ---
This Rn taking over care at this time.
--- NOTE | 2024-05-05 15:02 | PCM.PRE.AN2 ---
ASA Classification* ASA Classification ASA Classification: 3 and E Assessment & Plan Anesthesia* Anesthesia Assessment Anesthesia Assessment: Discussed sedation and/or anesthesia options, risks, benefits, and alternatives with patient/parents/legal guardian/POA. Questions invited. The patient/parents/legal guardian/POA seems to understand and agrees to proceed with anesthesia plan. Reviewed the physical assessment, medical history, allergy history and patient home medications list prior to surgery/procedure/anesthetic and documented any changes. Performed airway and anesthesia risk assessments. Anesthesia Type Anesthesia Type: MAC History Source History Obtained from:: Patient and Chart Anesthesia Focused Assessment* Temperature: 97.9 F Pulse Rate: 99 Blood Pressure: 120/45 Respiratory Rate: 16 Pulse Ox: 100 Oxygen Delivery Method: Nasal Cannula Oxygen Flow Rate (L/min): 2 Airway Assessment Mouth opens: >3 cm Mallampati Score: II Teeth Condition: Caps/Crowns (Patient has a couple crowns. They are tight.) Neck Range of motion (ROM): Limited ROM (Slight decrease in extension) Focused Labs Anesthesia Preop lab: CBC WBC 12.6 K/mm3 (4.4-11.0) H 05/05/24 07:11 05/05/24 RBC 1.66 M/mm3 (4.2-5.4) L 05/05/24 07:11 05/05/24 Hgb 5.3 g/dL (12.0-15.0) L* 05/05/24 07:11 05/05/24 Hct 15.8 % (37-47) L 05/05/24 07:11 05/05/24 Plt Count 171 K/mm3 (150-450) 05/05/24 07:11 05/05/24 CHEMISTRY Potassium 4.3 mmol/L (3.5-5.1) 05/04/24 05:08 05/04/24 Sodium 141 mmol/L (136-145) 05/04/24 05:08 05/04/24 BUN 24 mg/dL (7-18) H 05/04/24 05:08 05/04/24 Creatinine 0.87 mg/dL (0.55-1.02) 05/04/24 05:08 05/04/24 Glucose 132 mg/dL (74-106) H 05/04/24 05:08 05/04/24 POC Glucose 133 mg/dL (74-106) H 05/05/24 11:29 05/05/24 TSH 4.40 uIU/mL (0.358-3.74) H 01/29/22 14:00 01/29/22 COAG Lab additional comments: Troponin done on May 05, 2024 was 174. 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 When Was Last Pacemaker Check QUESTION #4 FULL TEXT: You/Your Family Experience fever (hyperthermia) with Anesthesia Last Oral Intake Last Oral intake: Last Oral Intake NPO since 00:00 05/05/24 11:43 Meds taken in AM with sips of No 05/05/24 11:43 water? Meds patient instructed to take am of surgery PONV PONV - fiberglass boat parts finisher: PONV - fiberglass boat parts finisher Female HX of Motion Sickness HX of N/V After Surgery Non-Smoker Duration of Surgery greater than 60 minutes Number of Risk Factors PONV Score Height & Weight Height & Weight: Anesthesia: Height & Weight Height 5 ft 1 in 05/05/24 11:43 Weight: 97.3 kg 05/05/24 11:43 Body Mass Index (BMI) 40.5 05/05/24 11:43 Respiratory Assessment Respiratory Assessment - fiberglass boat parts finisher: Respiratory Tract Infection Hx - fiberglass boat parts finisher Hx Respiratory Tract Infection No 05/05/24 12:25 STOP Sleep Apnea STOP Sleep Apnea - fiberglass boat parts finisher: STOP Sleep Apnea - fiberglass boat parts finisher Hx Hypertension Yes 05/05/24 10:25 Hx Sleep Apnea Yes 05/04/24 03:12 CPAP No 05/04/24 03:12 BIPAP No 05/04/24 03:12 Do you snore loudly (louder than talking or can be heard Do you often feel tired/ fatigued/ sleepy during daytime? Has anyone observed you stop breathing during sleep? STOP Results Positive 05/04/24 03:12 QUESTION #5 FULL TEXT : Do you snore loudly (louder than talking or can be heard through closed doors)? 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 Specify any problems Hx of Preganancy in last 3 No 05/04/24 03:12 Months Nurse Filling Out Transfusion MMAST 05/04/24 03:12 & Questions: Date: 05/04/24 05/04/24 03:12 Time: 03:15 05/04/24 03:12 Patient unable to answer at this time (ie. confused, unrespo /Reproduction History /Reproductive History - fiberglass boat parts finisher: /Reproductive Hx- fiberglass boat parts finisher Hx Now No 05/05/24 12:25 Gestational Age (in weeks): EDC: Hx Hx Para Hx Section SAB Active Medications Active Medications: Current Medications Generic Name Dose Route Start Last Admin Trade Name Freq PRN Reason Stop Dose Admin Acetaminophen 650 mg 05/04/24 03:09 Acetaminophen 325 Mg Tablet PO Q4H PRN PRN Fever, pain 1-01/01 Al Hydroxide/Mg Hydroxide 30 ml 05/04/24 03:09 Mag Hydrox/Al Hydrox/Simeth 30 Ml Udc PO Q6H PRN PRN Gastric Burning Albuterol Sulfate 2.5 mg 05/04/24 03:09 Albuterol 2.5 Mg/3 Ml Vial.Neb. INHALATION Q2H PRN PRN Dyspnea, wheezing Alprazolam 0.25 mg 05/05/24 13:43 Alprazolam 0.25 Mg Tablet PO BID PRN PRN anxiety Atorvastatin Calcium 5 mg 05/04/24 22:00 05/04/24 21:42 Atorvastatin Calcium 10 Mg Tablet PO 5 mg QHS KRYSTA Administration Fluticasone Propionate 2 spray 05/04/24 10:00 05/05/24 10:31 Fluticasone 0.05% 1 [place] Nasal.Sry NASAL Not Given DAILY KRYSTA Gabapentin 300 mg 05/04/24 10:00 05/05/24 10:24 Gabapentin 300 Mg Capsule PO Not Given DAILY KRYSTA Glucagon 1 mg 05/04/24 03:09 Glucagon 1 Mg/Ml Syringe IM X1 PRN HYPOGLYCEMIA Protocol Guaifenesin 20 ml 05/04/24 03:09 Guaifenesin 10 Ml Udc (200mg/10ml) PO Q4H PRN PRN COUGH Hydralazine HCl 10 mg 05/04/24 03:09 Hydralazine 20 Mg/Ml Vial IV Q4H PRN PRN SBP > 160 Protocol Pantoprazole Sodium 40 mg/ 110 mls @ 330 mls/hr 05/04/24 03:09 05/05/24 10:24 Sodium Chloride IV Infused Q12 KRYSTA Infusion Dextrose 250 mls @ 0 mls/hr 05/04/24 03:09 Dextrose 10%-Water IV .Q0M PRN HYPOGLYCEMIA Protocol As Directed Sodium Chloride 100 mls @ 15 mls/hr 05/05/24 08:23 05/05/24 13:23 IV 50 mls/hr .Q6H40M PRN Infusion SALINE FLUSH Sodium Chloride 100 mls @ 15 mls/hr 05/05/24 08:23 IV .Q6H40M PRN Saline Flush Sodium Chloride 100 mls @ 15 mls/hr 05/05/24 08:23 IV .Q6H40M PRN Additional IVPB Infusion Influenza Virus Vaccine 180 mcg 05/06/24 10:00 Flu Vaccine High Dose Tv 24-25 180 Mcg/0.5 Ml Syringe IM 05/06/24 10:01 .ONCE ONE Insulin Human Lispro 0 unit 05/05/24 12:00 05/05/24 11:48 Insulin Lispro 100 Unit/Ml Insuln.Pen SC Not Given Q6 [facility] Protocol Levothyroxine Sodium 125 mcg 05/04/24 06:00 05/05/24 04:41 Levothyroxine 125 Mcg Tablet PO 125 mcg DAILY@0600 KRYSTA Administration Melatonin 3 mg 05/04/24 03:09 Melatonin 3 Mg Tablet PO QHS PRN PRN INSOMNIA Montelukast Sodium 10 mg 05/04/24 10:00 05/05/24 10:24 Montelukast 10 Mg Tablet PO Not Given DAILY [facility] Morphine Sulfate 2 mg 05/04/24 03:09 Morphine 2 Mg/Ml Syringe IV Q3H PRN PRN Pain Score 6-10 Ondansetron HCl 4 mg 05/04/24 03:09 05/05/24 08:22 Ondansetron 4 Mg/2 Ml Vial IV 4 mg Q8H PRN PRN Administration NAUSEA/VOMITING Oxycodone HCl 5 mg 05/04/24 03:09 Oxycodone 5 Mg Tablet PO Q4H PRN PRN Pain Score 4-10 Prochlorperazine Edisylate 5 mg 05/04/24 03:09 Prochlorperazine 10 Mg/2 Ml Vial IV Q4H PRN PRN Breakthrough nausea/vomiting Sertraline HCl 100 mg 05/04/24 10:00 05/05/24 10:24 Sertraline 100 Mg Tablet PO Not Given DAILY [facility] Sodium Chloride 10 - 40 ml 05/05/24 08:23 05/05/24 09:35 0.9% Saline Lock 10 Ml Syringe IV 20 ml UD PRN Administration SALINE FLUSH PFSH Medical History CKD (chronic kidney disease), stage II Chronic anemia Neuropathy Diabetes mellitus, type 2 Esophageal reflux Allergic rhinitis Anxiety and depression COLD (chronic obstructive lung disease) Dysthymic disorder Tobacco use disorder Obesity IBS (irritable bowel syndrome) Hypothyroidism HTN (hypertension) HLD (hyperlipidemia) Medical History no medical history Home Medications ?Medication ?Instructions ?Recorded ?Last Taken ?Type Lisinopril/Hydrochlorothiazide 1 tab PO DAILY 06/21/14 11/12/18 History [Zestoretic 20/12.5 Tablet] fluticasone propionate 50 2 spray DAILY PRN allergy symptoms 06/21/14 11/12/18 History mcg/actuation nasal spray,suspension gabapentin 300 mg capsule 300 mg PO DAILY 06/21/14 11/12/18 History levothyroxine 125 mcg tablet 125 mcg PO DAILY 06/21/14 05/05/24 History metformin 850 mg tablet 850 mg PO DAILY 06/21/14 11/12/18 History montelukast 10 mg tablet 10 mg PO DAILY 06/21/14 11/12/18 History sertraline 100 mg tablet 100 mg PO DAILY 06/21/14 11/12/18 History simvastatin 10 mg tablet 10 mg PO QHS 06/21/14 11/12/18 History sitagliptin phosphate 100 mg 100 mg PO DAILY 06/21/14 11/12/18 History tablet (Januvia) alprazolam 0.5 mg tablet 0.25 mg PO BID PRN PRN anxiety 05/04/24 Unknown History melatonin 10 mg tablet 10 mg PO QHS 05/04/24 Unknown History Allergy/AdvReac Type Severity Reaction Status Date / Time metaxalone (From Skelaxin) Allergy Other Verified 05/04/24 00:29 Penicillins Allergy Hives Verified 05/04/24 00:29 Family History Mother CAD (coronary artery disease) Heart disease Hypertension Myocardial infarction Diabetes Father Lung cancer Tobacco use history. Family History no significant family his Surgical History History of ankle surgery S/P cataract extraction History of cholecystectomy Social History household members: spouse Smoking Status: Current every day smoker tobacco type: cigarettes Smoking packs per day: 1 Smoking cigarettes per day: 20.0 alcohol intake: never substance use type: does not use Review of Systems (Anesthesia) ROS Narrative System reviewed and no additional complaints, except as documented.
--- NOTE | 2024-05-05 16:03 | CON.PCM.GI_ITS ---
HPI Consult Data Date of Consult: 05/05/24 HPI Narrative Reason for Consultation: GI bleeding HPI Narrative: 74 y/o presents with multiple large bowel movements. She has a past medical history of chronic normocytic anemia, who presents to the [facility] ED on 05/04/2024 with history of onset of lower abdominal cramping in the evening the day prior with sensation of likely onset diarrhea prompting her to the bathroom. She ended up having 4 large episodes of bright red blood with dark clots. In the ED she was discovered to be hypotensive and tachycardic. Her hemoglobin was noted to be 7.1. She does not take blood thinners. REPLACED BY [facility] Medical History CKD (chronic kidney disease), stage II Chronic anemia Neuropathy Diabetes mellitus, type 2 Esophageal reflux Allergic rhinitis Anxiety and depression COLD (chronic obstructive lung disease) Dysthymic disorder Tobacco use disorder Obesity IBS (irritable bowel syndrome) Hypothyroidism HTN (hypertension) HLD (hyperlipidemia) Medical History no medical history Home Medications ?Medication ?Instructions ?Recorded ?Last Taken ?Type Lisinopril/Hydrochlorothiazide 1 tab PO DAILY 06/21/14 11/12/18 History [Zestoretic 20/12.5 Tablet] fluticasone propionate 50 2 spray DAILY PRN allergy sy mptoms 06/21/14 11/12/18 History mcg/actuation nasal spray,suspension gabapentin 300 mg capsule 300 mg PO DAILY 06/21/14 History levothyroxine 125 mcg tablet 125 mcg PO DAILY 06/21/14 05/05/24 History metformin 850 mg tablet 850 mg PO DAILY 06/21/14 History montelukast 10 mg tablet 10 mg PO DAILY 06/21/1410/24 History sertraline 100 mg tablet 100 mg PO DAILY 06/21/14 History simvastatin 10 mg tablet 10 mg PO QHS 06/21/14 History sitagliptin phosphate 100 mg 100 mg PO DAILY 06/21/14 11/12/18 History tablet (Januvia) alprazolam 0.5 mg tablet 0.25 mg PO BID PRN PRN anxie ty 05/04/24 Unknown History melatonin 10 mg tablet 10 mg PO QHS 05/04/24 Unknow n History Allergy/AdvReac Type Severity Reaction Status Date / Time metaxalone (From Skelaxin) Allergy Other Verified 05/04/24 00:29 Penicillins Allergy Hives Verified 05/04/24 00:29 Family History Mother CAD (coronary artery disease) Heart disease Hypertension Myocardial infarction Diabetes Father Lung cancer Tobacco use history. Family History no significant family his Surgical History History of ankle surgery S/P cataract extraction History of cholecystectomy Social History household members: spouse Smoking Status: Current every day smoker tobacco type: cigarettes Smoking packs per day: 1 Smoking cigarettes per day: 20.0 alcohol intake: never substance use type: does not use ROS Constitutional Constitutional: Denies fatigue, fever(s), poor appetite, weight gain or weight loss Gastrointestinal Gastrointestinal: Denies belching, bloating, change in bowel habits, change in stool character, chewing difficulty, coffee ground emesis, constipation, cramping, diarrhea, dyspepsia, dysphagia, early satiety, excessive flatus, fecal incontinence, heartburn, hematemesis, hematochezia, hemorrhoids, loose stools, melena, nausea, odynophagia, rectal bleeding, tenesmus, vomiting or weight changes Physical Exam Const alert, oriented x3, no apparent distress and healthy appearing General Appearance: cooperative GI normal to inspection, nondistended, normoactive bowel sounds, soft to palpation, non-tender and non-distended Percussion: normal to percussion Rectal Exam: deferred Lab / Micro Data 05/05/24 07:11 05/04/24 05:08 Labs: Laboratory Results - last 24 hr 05/04/24 00:42: Blood Type O POSITIVE, Antibody Screen NEGATIVE, Crossmatch See Detail 05/04/24 21:38: POC Glucose 152 H 05/05/24 02:43: POC Glucose 149 H 05/05/24 07:11: WBC 12.6 H, RBC 1.66 L, Hgb 5.3 L*, Hct 15.8 L, MCV 95.2, MCH 31.9, MCHC 33.5, RDW Std Deviation 47.3 H, RDW Coeff of Abena 13.8, Plt Count 171, MPV 10.7, Immature Gran % (Auto) 0.500, Neut % (Auto) 58.4, Lymph % (Auto) 35.2, [place] % (Auto) 4.8, Eos % (Auto) 0.7, Baso % (Auto) 0.4, Absolute Neuts (auto) 7.4, Absolute Lymphs (auto) 4.44, Nucleated RBC % 0.2, Differential Comment COMMENT, Diff Path Review July foll 05/05/24 09:56: Troponin I High Sens 174 H* 05/05/24 11:29: POC Glucose 133 H Imaging Radiology Impression Abdomen/Pelvis CTA 05/05/24 08:13 IMPRESSION: 1. Scattered calcified atherosclerotic disease of the aorta without aneurysm or dissection. 2. Fecal retention in the colon consistent with constipation. 3. Hepatomegaly with fatty infiltration. 4. Colonic diverticulosis without acute diverticulitis. Reading [facility] Assessment & Plan Assessment/Plan (1) GI bleed: PLAN: Plan The patient is a 74 y/o F with an acute GI Bleed, high suspicion diverticular etiology with chronic normocytic anemia (Admission Hgb 9.6, prior 01/29/22 Hgb 10.1). However she does have signs and symptoms of upper GI bleed due to her hypotension and elevated BUN/creatinine ratio. Recommend PPI drip and n.p.o. for upper endoscopy. Charges/Coding Visit Charges Inpatient E&M: 24458 Init Hosp L2
--- NOTE | 2024-05-05 16:39 | PCM.PN.BLA ---
Progress Note Follow-up in office: [2 weeks] Okay to restart [she is not on any blood thinners] New GI related medications for discharge: [Protonix 40 mg a day] Follow-up procedures needed: [Capsule endoscopy as an outpatient] Visit Charges Inpatient E&M: 76595 Subs Hosp L2
--- NOTE | 2024-05-05 16:39 | PCM.POST.ANE ---
Anesthesia: Postop Eval I Current Vital Signs Temperature: 97.2 F Pulse Rate: 65 Blood Pressure: 138/72 Respiratory Rate: 14 Pulse Ox: 97 Oxygen Delivery Method: Room Air Assessment Airway patent: Yes Spontaneous unlabored respirations: Yes Mental status: Awake nausea: No Vomiting: No Anesthesia Complication: No Fluid Hydration Crystalloid volume administer (ml): 10 Total IV fluid infused: 10 Progress Note Anesthesia document: Postop Eval 1 completed: Yes
--- NOTE | 2024-05-05 16:43 | OP.EGD_ITS ---
Patient Name: Judit Winkler Procedure Date: 05/05/2024 4:08 PM Date of : 1950 Age: 74 Procedure: Upper GI endoscopy Indications: Hematochezia, Melena Providers: Douglas Mancera DO Medicines: Monitored Anesthesia Care Patient Profile: This is a 74 year old female. Refer to note in patient chart for documentation of history and physical. Patient has symptoms of acute abdominal cramping. Complications: No immediate complications. Procedure: Pre-Anesthesia Assessment: - Prior to the procedure, a History and Physical was performed, and patient medications and allergies were reviewed. The patient is competent. The risks and benefits of the procedure and the sedation options and risks were discussed with the patient. All questions were answered and informed consent was obtained. Patient identification and proposed procedure were verified by the physician in the pre-procedure area. Mental Status Examination: alert and oriented. Airway Examination: normal oropharyngeal airway and neck mobility. Respiratory Examination: clear to auscultation. CV Examination: normal. Prophylactic Antibiotics: The patient does not require prophylactic antibiotics. Prior Anticoagulants: The patient has taken no anticoagulant or antiplatelet agents except for NSAID medication. ASA Grade Assessment: II - A patient with mild systemic disease. After reviewing the risks and benefits, the patient was deemed in satisfactory condition to undergo the procedure. The anesthesia plan was to use monitored anesthesia care (MAC). Immediately prior to administration of medications, the patient was re-assessed for adequacy to receive sedatives. The heart rate, respiratory rate, oxygen saturations, blood pressure, adequacy of pulmonary ventilation, and response to care were monitored throughout the procedure. The physical status of the patient was re-assessed after the procedure. After obtaining informed consent, the endoscope was passed under direct vision. Throughout the procedure, the patient's blood pressure, pulse, and oxygen saturations were monitored continuously. The Endoscope was introduced through the mouth, and advanced to the fourth part of the duodenum. Small bowel enteroscopy was deemed necessary. The upper GI endoscopy was accomplished without difficulty. The patient tolerated the procedure well. Scope In: 4:28:17 PM Scope Out: 4:30:10 PM Total Procedure Duration Time 0 hours 1 minute 53 seconds Findings: The examined esophagus was normal. Patchy moderately erythematous mucosa without bleeding was found on the anterior wall of the gastric body. The fourth portion of the duodenum was normal. Impression: - Normal esophagus. - Erythematous mucosa in the anterior wall of the gastric body. - Normal fourth portion of the duodenum. - No specimens collected. Recommendation: - Return [facility] to [facility] for [facility] care. - Clear liquid diet. - Continue present medications. Procedure Code(s): --- Professional --- 87766, Small intestinal endoscopy, enteroscopy beyond second portion of duodenum, not including ileum; diagnostic, including collection of specimen(s) by brushing or washing, when performed (separate procedure) CPT copyright 2021 [employer]. All rights reserved. The codes documented in this report are preliminary and upon pharmacy resource tech review may be revised to meet current compliance requirements. Douglas Mancera DO 05/05/2024 4:43:29 PM This report has been signed electronically. Number of Addenda: 0 Note Initiated On: 05/05/2024 4:08 PM
--- NOTE | 2024-05-05 16:44 | OP.CCLET_ITS ---
05/05/2024 Ana Santiago [address] [place] [address] Re : Upper GI endoscopy procedure for Judit Winkler Dear Dr. Santiago This procedure was performed on Sunday, May 05, 2024. My impressions and recommendations are as follows: Impressions : - Normal esophagus. - Erythematous mucosa in the anterior wall of the gastric body. - Normal fourth portion of the duodenum. - No specimens collected. Recommendations : - Return patient to [facility] for ongoing care. - Clear liquid diet. - Continue present medications. My findings are described in the full procedure note, which is enclosed. If I can be of further assistance, please feel free to contact me at . Sincerely, Douglas Mancera, 05/05/2024 4:43:29 PM This report has been signed electronically.
[2024-05-05] MEDS: Bisacodyl 5 MG Tablet 20 MG PO (17:54)
--- NOTE | 2024-05-05 18:46 | POSTOPAN2_ITS ---
Anesthesia Postop Eval I Sum Postop Eval Completion status Anesthesia document: Postop Eval 1 completed: Yes Anesthesia Postop Eval I Summary Anesthesia Postop Eval I Summary: Anesthesia Postop Eval I: Assessment Summary Airway patent Yes 05/05/24 16:40 DIPLOMA DENTAL ASSISTANT.HBARR Spontaneous unlabored Yes 05/05/24 16:40 DIPLOMA DENTAL ASSISTANT.HBARR respirations Mental status Awake 05/05/24 16:40 DIPLOMA DENTAL ASSISTANT.HBARR nausea No 05/05/24 16:40 DIPLOMA DENTAL ASSISTANT.HBARR Vomiting No 05/05/24 16:40 DIPLOMA DENTAL ASSISTANT.HBARR Anesthesia Postop Eval I: Fluid Summary Crystalloid volume administer 10 05/05/24 16:40 DIPLOMA DENTAL ASSISTANT.HBARR (ml) Colloids volume administered ( ml) Blood Product volume administered (ml) Total IV fluid infused 10 05/05/24 16:40 DIPLOMA DENTAL ASSISTANT.HBARR Anesthesia Postop Eval I: Summary Notes Anesthesia Complication No 05/05/24 16:40 DIPLOMA DENTAL ASSISTANT.HBARR Anesthesia Complication Comment: Post-operative progress note Anesthesia: Postop Eval II Evaluation Mental status: Awake and Calm Pain Level: 0 nausea: No Vomiting: No Complications Anesthesia Complication: No
--- NOTE | 2024-05-05 18:46 | PCM.POSTANE2 ---
Anesthesia Postop Eval I Sum Postop Eval Completion status Anesthesia document: Postop Eval 1 completed: Yes Anesthesia Postop Eval I Summary Anesthesia Postop Eval I Summary: Anesthesia Postop Eval I: Assessment Summary Airway patent Yes 05/05/24 16:40 ASSOCIATE EMBALMER/FUNERAL DIRECTOR.HBARR Spontaneous unlabored Yes 05/05/24 16:40 ASSOCIATE EMBALMER/FUNERAL DIRECTOR.HBARR respirations Mental status Awake 05/05/24 16:40 ASSOCIATE EMBALMER/FUNERAL DIRECTOR.HBARR nausea No 05/05/24 16:40 ASSOCIATE EMBALMER/FUNERAL DIRECTOR.HBARR Vomiting No 05/05/24 16:40 ASSOCIATE EMBALMER/FUNERAL DIRECTOR.HBARR Anesthesia Postop Eval I: Fluid Summary Crystalloid volume administer 10 05/05/24 16:40 ASSOCIATE EMBALMER/FUNERAL DIRECTOR.HBARR (ml) Colloids volume administered ( ml) Blood Product volume administered (ml) Total IV fluid infused 10 05/05/24 16:40 ASSOCIATE EMBALMER/FUNERAL DIRECTOR.HBARR Anesthesia Postop Eval I: Summary Notes Anesthesia Complication No 05/05/24 16:40 ASSOCIATE EMBALMER/FUNERAL DIRECTOR.HBARR Anesthesia Complication Comment: Post-operative progress note Anesthesia: Postop Eval II Evaluation Mental status: Awake and Calm Pain Level: 0 nausea: No Vomiting: No Complications Anesthesia Complication: No
[2024-05-05 19:47] LABS: Hematocrit 25.1 % (37-47); Hemoglobin 8.7 g/dL (12.0-15.0)
[2024-05-05 20:00] LABS: Bedside Glucose 137 mg/dL (74-106)
[2024-05-05] MEDS: Polyethylene Glycol 3350 BOWEL PREP PO (20:02)
[2024-05-05] MEDS: Atorvastatin Calcium 10 MG Tablet 5 MG PO (21:22)
[2024-05-06] VITALS (10 sets, daily range): BP systolic 111–138; BP diastolic 45–65; PULSE 77–83; RESP 12–18; TEMP 36.3–37.2; O2SAT 77–100; BMI 40.5
[2024-05-06 00:17] LABS: Bedside Glucose 129 mg/dL (74-106)
[2024-05-06 06:49] LABS: Bedside Glucose 123 mg/dL (74-106)
--- NOTE | 2024-05-06 07:27 | PN.HOSP_ITS ---
Reason for Visit Reason for Visit: Diagnoses Gastrointestinal hemorrhage, unspecified (05/05/24) Subjective Subjective Still with rectal bleeding, but less frequent. Objective Data Objective Data Vital Signs: Vital Signs Temp Pulse Resp BP Pulse Ox O2 Del Method O2 Flow Rate 36.7 C 80 18 138/56 H 95 Room Air 2 05/06/24 04:00 05/06/24 04:00 05/06/24 04:00 05/06/24 04:00 05/06/24 04:00 05/06/24 06:30 05/05/24 15:16 Oxygen Flow Rate (L/min) 2 Oxygen Delivery Method Room Air Weight: 97.3 kg Body Mass Index (BMI) 40.5 Intake & Output: Intake and Output for Last 24 Hours 05/04/24 05/05/24 05/06/24 23:59 23:59 23:59 Intake Total 5230 / 5230 4073.42 / 4073.42 Balance 5230 / 5230 4073.42 / 4073.42 Lab / Micro Data 05/06/24 07:07 05/06/24 07:07 Labs: Laboratory Results - last 24 hr 05/04/24 00:42: Blood Type O POSITIVE, Antibody Screen NEGATIVE, Crossmatch See Detail 05/05/24 07:11: WBC 12.6 H, RBC 1.66 L, Hgb 5.3 L*, Hct 15.8 L, MCV 95.2, MCH 31.9, MCHC 33.5, RDW Std Deviation 47.3 H, RDW Coeff of Abena 13.8, Plt Count 171, MPV 10.7, Immature Gran % (Auto) 0.500, Neut % (Auto) 58.4, Lymph % (Auto) 35.2, [place] % (Auto) 4.8, Eos % (Auto) 0.7, Baso % (Auto) 0.4, Absolute Neuts (auto) 7.4, Absolute Lymphs (auto) 4.44, Nucleated RBC % 0.2, Differential Comment COMMENT, Diff Path Review July05/05/24 09:56: Troponin I High Sens 174 H* 05/05/24 11:29: POC Glucose 133 H 05/05/24 17:52: POC Glucose 137 H 05/05/24 19:37: Hgb 8.7 L, Hct 25.1 L 05/05/24 23:47: POC Glucose 129 H 05/06/24 06:26: POC Glucose 123 H Micro: Microbiology 05/04/24 00:40 Stool Stool Occult Blood (SARITA) - Final Occult Blood Positive Radiography Diagnostic Testing: Radiology Impression Abdomen/Pelvis CTA 05/05/24 08:13 IMPRESSION: 1. Scattered calcified atherosclerotic disease of the aorta without aneurysm or dissection. 2. Fecal retention in the colon consistent with constipation. 3. Hepatomegaly with fatty infiltration. 4. Colonic diverticulosis without acute diverticulitis. Reading Location: [facility] Physical Exam Const alert and no apparent distress HEENT head/scalp atraumatic and moist oral mucous membranes Resp normal respiratory effort, no retractions, no use of accessory muscles and clear to auscultation bilaterally Cardio regular rate, regular rhythm, S1 normal heart sound and S2 normal heart sound GI normal to inspection, nondistended, normoactive bowel sounds, soft to palpation, non-tender and non-distended Extremity normal to inspection Neuro Sensorium / Orientation: awake and alert Assessment & Plan Assessment/Plan (1) GI bleed: PLAN: Plan Acute GI Bleed * high suspicion diverticular etiology with chronic normocytic anemia (Admission Hgb 9.6, prior 01/29/22 Hgb 10.1), though continue IV PPI. * CT a/p negative. * CTA A/P negative for acute bleed. EGD unremarkable. ABLA * Hg 9.6 down to 5.3. NOw up to 7.6. * monitor * T+C 3 units. Transfuse 2 units. Type II NSTEMI * 2/2 ABLA. * EKG showed no acute process. Chronic conditions: * Incidentally noted left renal cyst, stable from previous: CT imaging with left renal cyst measuring 1.7 cm, unchanged in size from previous per radiology report. * Hypertension: Will temporally hold patient diuretic given planned hydration, as needed IV hydralazine in the interim. * Hyperlipidemia: We will continue patient on statin therapy. * Chronic Kidney Disease Stage II per GFR trending: Admission BUN/Cr 25/0.97, GFR 60, baseline renal function 0.7-1.3 although from lab review primarily 0.8-1.0, repeat BMP in AM. * Diabetes mellitus type II with chronic neuropathy: Hold oral home regimen, n.p.o. status, accu checks w/ ISS, continue home gabapentin regimen. * Chronic COPD: Per current list not on any chronic inhaler regimen, PRN albuterol, HOB, IS parameters. * Allergic rhinitis: We will continue patient home montelukast and fluticasone home regimen. * Tobacco Abuse: Encouraged cessation, inpatient consultation per RT, NR if desired. * Hypothyroidism: We will continue patient on levothyroxine regimen. * Obesity: Weight loss and lifestyle changes encouraged. * Dysthymia/anxiety and depression: We will continue patient on sertraline regimen * GERD: Will maintain the IV PPI as noted. DVT prophylaxis: SCDs. Charges/Coding Visit Charges Inpatient E&M: 94020 Subs Hosp L2
[2024-05-06 08:20] LABS: Hematocrit 22.1 % (37-47); Hemoglobin 7.6 g/dL (12.0-15.0); Mean Corp Hgb Conc 34.4 g/dL (32-36); Mean Corpuscular Hgb 31.3 pg (27.0-32.0); Mean Corpuscular Volume 90.9 fL (81-99); Mean Platelet Vol. 11.3 fl (6.2-12.0); Platelet Count 142 K/mm3 (150-450); RBC Distribution Width CV 16.1 % (11.6-14.6); RBC Distribution Width SD 53.9 fl (35.1-43.9); Red Blood Count 2.43 M/mm3 (4.2-5.4); White Blood Count 9.8 K/mm3 (4.4-11.0)
[2024-05-06 08:54] LABS: Anion Gap 6 (5-15); BUN 11 mg/dL (7-18); BUN/Creat Ratio 12.3 RATIO (10-20); Calcium,Total 8.9 mg/dL (8.5-10.1); Chloride 111 mmol/L (98-107); Creatinine, Serum 0.89 mg/dL (0.55-1.02); EST Glomerular Filtration Rate 66 mL/min (>60); Est Glom Filt Rate - Afr Amer 80 mL/min (>60); Estimated Creatinine Clearance 60.98 ml/min; Glucose 119 mg/dL (74-106); Potassium 3.3 mmol/L (3.5-5.1); Sodium Level 141 mmol/L (136-145)
[2024-05-06] MEDS: Montelukast 10 MG Tablet PO (09:25)
[2024-05-06] MEDS: Sertraline 100 MG Tablet PO (09:25)
[2024-05-06] MEDS: Pantoprazole Sodium 40 MG in 0.9% Normal Saline (100mL MB+) 100 ML 330 MG IV ×2 (09:25→20:51)
[2024-05-06] MEDS: Gabapentin 300 MG Capsule PO (09:25)
[2024-05-06] MEDS: 0.9% Saline Lock 10 ML Syringe IV (09:25)
--- NOTE | 2024-05-06 11:00 | CASEMGMT ---
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 RN CM?introduced self and role at [facility]. Pt voices understanding and consents to assessment?at this time. Pt resting in bed in no distress at this time. DaughterMelinda, @ bedside and pt agreeable to her being present during assessment. Pt is A/O at this time and answers all questions appropriately. Care providers, pharmacy, and demographics verified/updated at this time. Strata:?2 PCP: Dr Santiago (pt has an appt @ end of Apr) Specialists:Dr Rider, Dr Walter Preferred Pharmacy: [facility] @ discharge. Otherwise, pt goes to [facility] in [place]. Insurance: [employer] Prescription Benefit: yes Living Will/HPOA:Pt does not currently have LW/HCPOA and declines info at this time. Pt made aware that she can contact as an out-pt and make appt in the future if she decides she would like to talk with someone about this or would like to utilize [facility] social work for advanced directive completion. LNOK: , Carlos. DaughterNatalia. Son Living Arrangements: Lives w/ in one-story home w/basement (rarely goes downstairs). 2-3 steps to enter home w/railing on one side. Indep w/ADL's, medication mgnt, and does most home mgnt tasks. does assist a little. Transportation:Pt states drives self and states no transportation concerns at this time. also drives. DME: States has the following DME: Pt has a glucometer, but states it is about 5 yrs old and would like to get a new one. Made aware a script can be provided and made aware if it has been less than 5 yrs, insurance may not cover it. She states she has all supplies needed at this time. She has a CPAP, but has not worn it for ~ 2 yrs d/t not able to tolerate it. Pt states no need for further DME at this time. HHC/SNF: No hx of either. Denies need for HHC or OP therapy. Pt wishes to return home and states has no concerns with going home at time of discharge. CM?to follow for any further discharge planning/needs. Pt voices no further concerns/needs at this time. Advised pt to ask for CM?if any further questions/concerns/needs arise. Voices understanding. PLAN: Home w/script for glucometer. Mikey ABERNATHYN RN CM
[2024-05-06 11:55] LABS: Bedside Glucose 113 mg/dL (74-106)
--- NOTE | 2024-05-06 15:04 | PCM.PN.BLA ---
Progress Note Patient tolerated a prep without any problems. She is for colonoscopy today. Physical Exam Const alert and no apparent distress HEENT head/scalp atraumatic and moist oral mucous membranes Resp normal respiratory effort, no retractions, no use of accessory muscles and clear to auscultation bilaterally Cardio regular rate, regular rhythm, S1 normal heart sound and S2 normal heart sound GI normal to inspection, nondistended, normoactive bowel sounds, soft to palpation, non-tender and non-distended Extremity normal to inspection Neuro Sensorium / Orientation: awake and alert Assessment & Plan Assessment/Plan (1) GI bleed: PLAN: Plan The patient is a 74 y/o F with an acute GI Bleed, high suspicion diverticular etiology with chronic normocytic anemia (Admission Hgb 9.6, prior 01/29/22 Hgb 10.1). However she does have signs and symptoms of upper GI bleed due to her hypotension and elevated BUN/creatinine ratio. Patient had upper endoscopy but it did not reveal any signs or symptoms of GI bleeding. Therefore she will undergo colonoscopy today. She was explained alternatives, risk, benefits include not withstanding bleeding, infection, sepsis, perforation, need for emergent urgent . She will have an ASA of 3. Visit Charges Inpatient E&M: 10794 Subs Hosp L2
--- NOTE | 2024-05-06 15:15 | PCM.PRE.AN2 ---
ASA Classification* ASA Classification ASA Classification: 3 Assessment & Plan Anesthesia* Anesthesia Assessment Anesthesia Assessment: Discussed sedation and/or anesthesia options, risks, benefits, and alternatives with patient/parents/legal guardian/POA. Questions invited. The patient/parents/legal guardian/POA seems to understand and agrees to proceed with anesthesia plan. Reviewed the physical assessment, medical history, allergy history and patient home medications list prior to surgery/procedure/anesthetic and documented any changes. Performed airway and anesthesia risk assessments. Anesthesia Type Anesthesia Type: MAC Anesthesia Focused Assessment* Temperature: 98.2 F Pulse Rate: 83 Blood Pressure: 120/47 Respiratory Rate: 16 Pulse Ox: 100 Oxygen Flow Rate (L/min): 2 Airway Assessment Mouth opens: >3 cm Mallampati Score: II Focused Labs Anesthesia Preop lab: CBC WBC 9.8 K/mm3 (4.4-11.0) 05/06/24 07:07 05/06/24 RBC 2.43 M/mm3 (4.2-5.4) L 05/06/24 07:07 05/06/24 Hgb 7.6 g/dL (12.0-15.0) L 05/06/24 07:07 05/06/24 Hct 22.1 % (37-47) L 05/06/24 07:07 05/06/24 Plt Count 142 K/mm3 (150-450) L 05/06/24 07:07 05/06/24 CHEMISTRY Potassium 3.3 mmol/L (3.5-5.1) L 05/06/24 07:07 05/06/24 Sodium 141 mmol/L (136-145) 05/06/24 07:07 05/06/24 BUN 11 mg/dL (7-18) 05/06/24 07:07 05/06/24 Creatinine 0.89 mg/dL (0.55-1.02) 05/06/24 07:07 05/06/24 Glucose 119 mg/dL (74-106) H 05/06/24 07:07 05/06/24 POC Glucose 113 mg/dL (74-106) H 05/06/24 11:37 05/06/24 TSH 4.40 uIU/mL (0.358-3.74) H 01/29/22 14:00 01/29/22 COAG Pre-Assessment Diagnosis/Proposed Procedure Planned Operative Procedure(s): Colonoscopy Anesthesia History 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 When Was Last Pacemaker Check QUESTION #4 FULL TEXT: You/Your Family Experience fever (hyperthermia) with Anesthesia Last Oral Intake Last Oral intake: Last Oral Intake NPO since 00:00 05/06/24 06:43 Meds taken in AM with sips of No 05/06/24 06:43 water? Meds patient instructed to take am of surgery PONV PONV - real estate valuer: PONV - real estate valuer Female HX of Motion Sickness HX of N/V After Surgery Non-Smoker Duration of Surgery greater than 60 minutes Number of Risk Factors PONV Score Height & Weight Height & Weight: Anesthesia: Height & Weight Height 5 ft 1 in 05/06/24 06:43 Weight: 97.3 kg 05/06/24 06:43 Body Mass Index (BMI) 40.5 05/06/24 06:43 Respiratory Assessment Respiratory Assessment - real estate valuer: Respiratory Tract Infection Hx - real estate valuer Hx Respiratory Tract Infection No 05/05/24 12:25 STOP Sleep Apnea STOP Sleep Apnea - real estate valuer: STOP Sleep Apnea - real estate valuer Hx Hypertension Yes 05/05/24 10:25 Hx Sleep Apnea Yes 05/05/24 16:55 CPAP No 05/05/24 16:36 BIPAP No 05/04/24 03:12 Do you snore loudly (louder than talking or can be heard Do you often feel tired/ fatigued/ sleepy during daytime? Has anyone observed you stop breathing during sleep? STOP Results Positive 05/05/24 16:36 QUESTION #5 FULL TEXT : Do you snore loudly (louder than talking or can be heard through closed doors)? Tobacco Use History Tobacco Use History - real estate valuer: Tobacco Use History - real estate valuer Tobacco Use Cigarettes 10/08/20 12:08 Smoking Status Current every day smoker 05/04/24 10:59 Hx Tobacco Use Yes 05/04/24 03:12 Years Smoking Packs Smoked per Day Smoking Cessation Date was within the last 15 years Hx Smoking Cessation Date Hx Smoking Cessation Counseling Hematologic Medial History Hematologic Hx - real estate valuer: Hematologic Medical Hx - facilities coordinator Hx of Blood Transfusion No 05/04/24 03:12 Hx of Transfusion in last 3 No 05/04/24 03:12 Months Date of Last Transfusion (if within last 3 months) Ever experience any problems No 05/04/24 03:12 with transfusion(s)? Specify any problems Hx of Preganancy in last 3 No 05/04/24 03:12 Months Nurse Filling Out Transfusion MMAST 05/04/24 03:12 & Questions: Date: 05/04/24 05/04/24 03:12 Time: 03:15 05/04/24 03:12 Patient unable to answer at this time (ie. confused, unrespo /Reproduction History /Reproductive History - real estate valuer: /Reproductive Hx- real estate valuer Hx Now No 05/05/24 12:25 Gestational Age (in weeks): EDC: Hx Hx Para Hx Section SAB Active Medications Active Medications: Current Medications Generic Name Dose Route Start Last Admin Trade Name Freq PRN Reason Stop Dose Admin Acetaminophen 650 mg 05/04/24 03:09 Acetaminophen 325 Mg Tablet PO Q4H PRN PRN Fever, pain -01/01 Al Hydroxide/Mg Hydroxide 30 ml 05/04/24 03:09 Mag Hydrox/Al Hydrox/Simeth 30 Ml Udc PO Q6H PRN PRN Gastric Burning Albuterol Sulfate 2.5 mg 05/04/24 03:09 Albuterol 2.5 Mg/3 Ml Vial.Neb. INHALATION Q2H PRN PRN Dyspnea, wheezing Alprazolam 0.25 mg 05/05/24 13:43 Alprazolam 0.25 Mg Tablet PO BID PRN PRN anxiety Atorvastatin Calcium 5 mg 05/04/24 22:00 05/05/24 21:22 Atorvastatin Calcium 10 Mg Tablet PO 5 mg QHS KRYSTA Administration Fluticasone Propionate 2 spray 05/04/24 10:00 05/06/24 09:30 Fluticasone 0.05% 1 [place] Nasal.Sry NASAL Not Given DAILY KRYSTA Gabapentin 300 mg 05/04/24 10:00 05/06/24 09:25 Gabapentin 300 Mg Capsule PO 300 mg DAILY KRYSTA Administration Glucagon 1 mg 05/04/24 03:09 Glucagon 1 Mg/Ml Syringe IM X1 PRN HYPOGLYCEMIA Protocol Guaifenesin 20 ml 05/04/24 03:09 Guaifenesin 10 Ml Udc (200mg/10ml) PO Q4H PRN PRN COUGH Hydralazine HCl 10 mg 05/04/24 03:09 Hydralazine 20 Mg/Ml Vial IV Q4H PRN PRN SBP > 160 Protocol Pantoprazole Sodium 40 mg/ 110 mls @ 330 mls/hr 05/04/24 03:09 05/06/24 09:45 Sodium Chloride IV Infused Q12 KRYSTA Infusion Dextrose 250 mls @ 0 mls/hr 05/04/24 03:09 Dextrose 10%-Water IV .Q0M PRN HYPOGLYCEMIA Protocol As Directed Sodium Chloride 100 mls @ 15 mls/hr 05/05/24 08:23 05/05/24 15:39 IV Infused .Q6H40M PRN Infusion SALINE FLUSH Sodium Chloride 100 mls @ 15 mls/hr 05/05/24 08:23 IV .Q6H40M PRN Saline Flush Sodium Chloride 100 mls @ 15 mls/hr 05/05/24 08:23 IV .Q6H40M PRN Additional IVPB Infusion Insulin Human Lispro 0 unit 05/05/24 12:00 05/06/24 11:41 Insulin Lispro 100 Unit/Ml Insuln.Pen SC Not Given Q6 [facility] Protocol Levothyroxine Sodium 125 mcg 05/04/24 06:00 05/06/24 00:20 Levothyroxine 125 Mcg Tablet PO Not Given DAILY@0600 KRYSTA Melatonin 3 mg 05/04/24 03:09 Melatonin 3 Mg Tablet PO QHS PRN PRN INSOMNIA Montelukast Sodium 10 mg 05/04/24 10:00 05/06/24 09:25 Montelukast 10 Mg Tablet PO 10 mg DAILY KRYSTA Administration Morphine Sulfate 2 mg 05/04/24 03:09 Morphine 2 Mg/Ml Syringe IV Q3H PRN PRN Pain Score 6-10 Ondansetron HCl 4 mg 05/04/24 03:09 05/05/24 20:00 Ondansetron 4 Mg/2 Ml Vial IV 4 mg Q8H PRN PRN Administration NAUSEA/VOMITING Oxycodone HCl 5 mg 05/04/24 03:09 Oxycodone 5 Mg Tablet PO Q4H PRN PRN Pain Score 4-10 Prochlorperazine Edisylate 5 mg 05/04/24 03:09 Prochlorperazine 10 Mg/2 Ml Vial IV Q4H PRN PRN Breakthrough nausea/vomiting Sertraline HCl 100 mg 05/04/24 10:00 05/06/24 09:25 Sertraline 100 Mg Tablet PO 100 mg DAILY KRYSTA Administration Sodium Chloride 10 - 40 ml 05/05/24 08:23 05/06/24 09:25 0.9% Saline Lock 10 Ml Syringe IV 10 ml UD PRN Administration SALINE FLUSH PFSH Medical History CKD (chronic kidney disease), stage II Chronic anemia Neuropathy Diabetes mellitus, type 2 Esophageal reflux Allergic rhinitis Anxiety and depression COLD (chronic obstructive lung disease) Dysthymic disorder Tobacco use disorder Obesity IBS (irritable bowel syndrome) Hypothyroidism HTN (hypertension) HLD (hyperlipidemia) Medical History no medical history Home Medications ?Medication ?Instructions ?Recorded ?Last Taken ?Type Lisinopril/Hydrochlorothiazide 1 tab PO DAILY 06/21/14 11/12/18 History [Zestoretic 20/12.5 Tablet] fluticasone propionate 50 2 spray DAILY PRN allergy symptoms 06/21/14 11/12/18 History mcg/actuation nasal spray,suspension gabapentin 300 mg capsule 300 mg PO DAILY 06/21/14 11/12/18 History levothyroxine 125 mcg tablet 125 mcg PO DAILY 06/21/14 05/05/24 History metformin 850 mg tablet 850 mg PO DAILY 06/21/14 11/12/18 History montelukast 10 mg tablet 10 mg PO DAILY 06/21/14 11/12/18 History sertraline 100 mg tablet 100 mg PO DAILY 06/21/14 11/12/18 History simvastatin 10 mg tablet 10 mg PO QHS 06/21/14 11/12/18 History sitagliptin phosphate 100 mg 100 mg PO DAILY 06/21/14 11/12/18 History tablet (Januvia) alprazolam 0.5 mg tablet 0.25 mg PO BID PRN PRN anxiety 05/04/24 Unknown History melatonin 10 mg tablet 10 mg PO QHS 05/04/24 Unknown History Allergy/AdvReac Type Severity Reaction Status Date / Time metaxalone (From Skelaxin) Allergy Other Verified 05/04/24 00:29 Penicillins Allergy Hives Verified 05/04/24 00:29 Family History Mother CAD (coronary artery disease) Heart disease Hypertension Myocardial infarction Diabetes Father Lung cancer Tobacco use history. Family History no significant family his Surgical History History of ankle surgery S/P cataract extraction History of cholecystectomy Social History household members: spouse Smoking Status: Current every day smoker tobacco type: cigarettes Smoking packs per day: 1 Smoking cigarettes per day: 20.0 alcohol intake: never substance use type: does not use Review of Systems (Anesthesia) ROS Narrative System reviewed and no additional complaints, except as documented.
[2024-05-06 15:29] LABS: Pathologist Review Reviewed
--- NOTE | 2024-05-06 16:00 | OP.COLON_ITS ---
Patient Name: Judit Winkler Procedure Date: 05/06/2024 3:02 PM Date of : 1950 Age: 74 Procedure: Colonoscopy Indications: Hematochezia Providers: Douglas Mancera DO Medicines: Monitored Anesthesia Care Patient Profile: This is a 74 year old female. Refer to note in patient chart for documentation of history and physical. Last Colonoscopy: several years ago. Complications: No immediate complications. Procedure: Pre-Anesthesia Assessment: - Prior to the procedure, a History and Physical was performed, and patient medications and allergies were reviewed. The patient is competent. The risks and benefits of the procedure and the sedation options and risks were discussed with the patient. All questions were answered and informed consent was obtained. Patient identification and proposed procedure were verified by the physician in the pre-procedure area. Mental Status Examination: alert and oriented. Airway Examination: normal oropharyngeal airway and neck mobility. Respiratory Examination: clear to auscultation. CV Examination: normal. Prophylactic Antibiotics: The patient does not require prophylactic antibiotics. Prior Anticoagulants: The patient has taken no anticoagulant or antiplatelet agents. ASA Grade Assessment: III - A patient with severe systemic disease. After reviewing the risks and benefits, the patient was deemed in satisfactory condition to undergo the procedure. The anesthesia plan was to use monitored anesthesia care (MAC). Immediately prior to administration of medications, the patient was re-assessed for adequacy to receive sedatives. The heart rate, respiratory rate, oxygen saturations, blood pressure, adequacy of pulmonary ventilation, and response to care were monitored throughout the procedure. The physical status of the patient was re-assessed after the procedure. After I obtained informed consent, the scope was passed under direct vision. Throughout the procedure, the patient's blood pressure, pulse, and oxygen saturations were monitored continuously. The pediatric colonoscope was introduced through the anus and advanced to the terminal ileum. The colonoscopy was performed without difficulty. The patient tolerated the procedure well. The quality of the bowel preparation was fair. The terminal ileum, ileocecal valve, appendiceal orifice, and rectum were photographed. Scope In: 3:29:39 PM Scope Withdrawal Time 0 hours 12 minutes 20 seconds Scope Out: 3:45:07 PM Total Procedure Duration Time 0 hours 15 minutes 28 seconds Findings: The perianal and digital rectal examinations were normal. Multiple small and large-mouthed diverticula were found in the entire colon. Red blood was found in the rectum. Red blood was found in the entire colon. The colon was vigorously washed. No signs of active GI bleed was seen but it was blood in multiple diverticuli. Impression: - Preparation of the colon was fair. - Diverticulosis in the entire examined colon. - Blood in the rectum. - Blood in the entire examined colon. GI bleeding likely secondary to diverticular bleeding. - No specimens collected. Recommendation: - [facility]. - Full liquid diet today. - Continue present medications. - Repeat colonoscopy in 3 months for surveillance. Procedure Code(s): --- Professional --- 00521, Colonoscopy, flexible; diagnostic, including collection of specimen(s) by brushing or washing, when performed (separate procedure) CPT copyright 2021 [employer]. All rights reserved. The codes documented in this report are preliminary and upon mechanical engineering advisor review may be revised to meet current compliance requirements. Douglas Mancera DO 05/06/2024 3:59:45 PM This report has been signed electronically. Number of Addenda: 0 Note Initiated On: 05/06/2024 3:02 PM
--- NOTE | 2024-05-06 16:00 | OP.CCLET_ITS ---
05/06/2024 Ana Santiago [address] [place] [address] Re : Colonoscopy procedure for Judit Winkler Dear Dr. Santiago This procedure was performed on Monday, May 06, 2024. My impressions and recommendations are as follows: Impressions : - Preparation of the colon was fair. - Diverticulosis in the entire examined colon. - Blood in the rectum. - Blood in the entire examined colon. GI bleeding likely secondary to diverticular bleeding. - No specimens collected. Recommendations : - Return [facility] to [facility] for ongoing care. - Full liquid diet today. - Continue present medications. - Repeat colonoscopy in 3 months for surveillance. My findings are described in the full procedure note, which is enclosed. If I can be of further assistance, please feel free to contact me at . Sincerely, Douglas Mancera, 05/06/2024 3:59:45 PM This report has been signed electronically.
--- NOTE | 2024-05-06 16:47 | PCM.POST.ANE ---
Anesthesia: Postop Eval I Current Vital Signs Temperature: 98.5 F Pulse Rate: 77 Blood Pressure: 111/49 Respiratory Rate: 16 Pulse Ox: 77 Oxygen Delivery Method: Room Air Assessment Airway patent: Yes Spontaneous unlabored respirations: Yes Mental status: Awake nausea: No Vomiting: No Anesthesia Complication: No Fluid Hydration Crystalloid volume administer (ml): 10 Total IV fluid infused: 10 Progress Note Anesthesia document: Postop Eval 1 completed: Yes
--- NOTE | 2024-05-06 16:49 | PCM.POSTANE2 ---
Anesthesia Postop Eval I Sum Postop Eval Completion status Anesthesia document: Postop Eval 1 completed: Yes Anesthesia Postop Eval I Summary Anesthesia Postop Eval I Summary: Anesthesia Postop Eval I: Assessment Summary Airway patent Yes 05/06/24 16:48 Spontaneous unlabored Yes 05/06/24 16:48 respirations Mental status Awake 05/06/24 16:48 nausea No 05/06/24 16:48 Vomiting No 05/06/24 16:48 Anesthesia Postop Eval I: Fluid Summary Crystalloid volume administer 10 05/06/24 16:48 (ml) Colloids volume administered ( ml) Blood Product volume administered (ml) Total IV fluid infused 10 05/06/24 16:48 Anesthesia Postop Eval I: Summary Notes Anesthesia Complication No 05/06/24 16:48 Anesthesia Complication Comment: Post-operative progress note Anesthesia: Postop Eval II Evaluation Mental status: Awake Pain Level: 0 nausea: No Vomiting: No
--- NOTE | 2024-05-06 16:49 | ANES.CONFIRM ---
Anesthesia: Confirm Documents Multiple Procedures on Account (2) Confirmed Documents: Yes
[2024-05-06 17:08] LABS: Bedside Glucose 107 mg/dL (74-106)
--- NOTE | 2024-05-06 17:13 | PCM.PN.BLA ---
Progress Note Follow-up in office: [7 to 14 days] New GI related medications for discharge: [Metamucil powder twice daily] Follow-up procedures needed: [Repeat colonoscopy in 3 months] Visit Charges Inpatient E&M: 71637 Subs Hosp L2
[2024-05-06] MEDS: FLU VACCINE **HIGH DOSE** TV 24-25 180 MCG/0.5 ML SYRINGE IM (18:23)
[2024-05-06] MEDS: Atorvastatin Calcium 10 MG Tablet 5 MG PO (20:51)
[2024-05-07 00:18] LABS: Bedside Glucose 101 mg/dL (74-106)
[2024-05-07 02:15] VITALS: BP 111/54; PULSE 88; RESP 16; TEMP 36.7; O2SAT 99
[2024-05-07 03:47] VITALS: BMI 39.9
[2024-05-07 06:15] VITALS: BP 120/49; PULSE 78; RESP 16; TEMP 37; O2SAT 99
[2024-05-07] MEDS: Levothyroxine 125 MCG Tablet PO (06:19)
[2024-05-07 06:43] LABS: Bedside Glucose 109 mg/dL (74-106)
[2024-05-07] MEDS: Sertraline 100 MG Tablet PO (07:58)
[2024-05-07] MEDS: Gabapentin 300 MG Capsule PO (07:58)
[2024-05-07] MEDS: Montelukast 10 MG Tablet PO (07:58)
--- NOTE | 2024-05-07 08:26 | PCM.PN.HOSP ---
Reason for Visit Reason for Visit: Diagnoses Gastrointestinal hemorrhage, unspecified (05/05/24) Subjective Subjective No further bleeding. Objective Data Objective Data Vital Signs: Vital Signs Temp Pulse Resp BP Pulse Ox O2 Del Method O2 Flow Rate 37.0 C 78 16 120/49 L 99 Room Air 2 05/07/24 06:15 05/07/24 06:15 05/07/24 06:15 05/07/24 06:15 05/07/24 06:15 05/07/24 06:15 05/06/24 15:16 Oxygen Flow Rate (L/min) 2 Oxygen Delivery Method Room Air Weight: 95.7 kg Body Mass Index (BMI) 39.9 Intake & Output: Intake and Output for Last 24 Hours 05/05/24 05/06/24 05/07/24 23:59 23:59 23:59 Intake Total 4073.42 / 4073.42 580 / 580 240 / 240 Balance 4073.42 / 4073.42 580 / 580 240 / 240 Lab / Micro Data 05/07/24 09:10 05/06/24 07:07 Labs: Laboratory Results - last 24 hr 05/05/24 07:11: Diff Path Review Reviewed 05/06/24 07:07: Sodium 141, Potassium 3.3 L, Chloride 111 H, Carbon Dioxide 24.0, Anion Gap 6, BUN 11, Creatinine 0.89, Estim Creat Clear Calc 60.98, Est GFR (MDRD) Af Amer 80, Est GFR (MDRD) Non-Af 66, BUN/Creatinine Ratio 12.3, Glucose 119 H, Calcium 8.9 05/06/24 11:37: POC Glucose 113 H 05/06/24 16:50: POC Glucose 107 H 05/06/24 23:56: POC Glucose 101 05/07/24 06:18: POC Glucose 109 H Micro: Microbiology 05/04/24 00:40 Stool Stool Occult Blood (SARITA) - Final Occult Blood Positive Physical Exam Const alert Constitutional Narrative: anxious. Resp normal respiratory effort, no retractions, no use of accessory muscles and clear to auscultation bilaterally Cardio regular rate, regular rhythm, S1 normal heart sound and S2 normal heart sound GI normal to inspection, nondistended, normoactive bowel sounds, soft to palpation, non-tender and non-distended Extremity normal to inspection, full ROM and no clubbing, cyanosis or edema Neuro oriented x3, CN's II-XII intact bilaterally, moves all extremities and no focal motor deficits Psych affect normal Assessment & Plan Assessment/Plan (1) GI bleed: PLAN: Plan Acute GI Bleed high suspicion diverticular etiology with chronic normocytic anemia (Admission Hgb 9.6, prior 01/29/22 Hgb 10.1), though continue IV PPI. CT a/p negative. CTA A/P negative for acute bleed. EGD unremarkable. Colonoscopy showed blood in entire colon and extensive diverticulosis. Presumably bleeding is diverticular. Recommending repeat colonoscopy in 3 months. ABLA Hg 9.6 down to 5.3. Now up to 7.6. monitor T+C 3 units. Transfused 2 units. No further transfusions at this time. Type II NSTEMI 2/2 ABLA. EKG showed no acute process. Chronic conditions: Incidentally noted left renal cyst, stable from previous: CT imaging with left renal cyst measuring 1.7 cm, unchanged in size from previous per radiology report. Hypertension: Will temporally hold patient diuretic given planned hydration, as needed IV hydralazine in the interim. Hyperlipidemia: We will continue patient on statin therapy. Chronic Kidney Disease Stage II per GFR trending: Admission BUN/Cr 25/0.97, GFR 60, baseline renal function 0.7-1.3 although from lab review primarily 0.8-1.0, repeat BMP in AM. Diabetes mellitus type II with chronic neuropathy: Hold oral home regimen, n.p.o. status, accu checks w/ ISS, continue home gabapentin regimen. Chronic COPD: Per current list not on any chronic inhaler regimen, PRN albuterol, HOB, IS parameters. Allergic rhinitis: We will continue patient home montelukast and fluticasone home regimen. Tobacco Abuse: Encouraged cessation, inpatient consultation per RT, NR if desired. Hypothyroidism: We will continue patient on levothyroxine regimen. Obesity: Weight loss and lifestyle changes encouraged. Dysthymia/anxiety and depression: We will continue patient on sertraline regimen GERD: Will maintain the IV PPI as noted. DVT prophylaxis: SCDs. Disposition: pt very anxious and with her severe GI bleed, will monitor her overnight to ensure stability and hopefully discharge 05/08 Charges/Coding Visit Charges Inpatient E&M: 03255 Subs Hosp L2
[2024-05-07 09:39] LABS: Absolute Lymphocyte Count 2.57 X10^3/uL (0.83-4.51); Absolute Neutrophil Count 7.1 X10^3/uL (2.0-7.7); Basophil# 0.04 X10^3/uL; Basophil% 0.4 % (0-1); Eosinophil# 0.19 X10^3/uL; Eosinophils% 1.8 % (0-5); Hematocrit 22.5 % (37-47); Hemoglobin 7.6 g/dL (12.0-15.0); Lymphocyte # 2.57 X10^3/ul (0.83-4.51); Lymphocyte % 24.4 % (19-41); Mean Corp Hgb Conc 33.8 g/dL (32-36); Mean Corpuscular Hgb 31.1 pg (27.0-32.0); Mean Corpuscular Volume 92.2 fL (81-99); Mean Platelet Vol. 11.2 fl (6.2-12.0); Monocyte# 0.54 X10^3/uL; Monocyte% 5.1 % (0-10); NRBC Flagged by Analyzer 0 % (0-5); Neutrophil # 7.14 X10^3/uL (2.7-7.7); Neutrophil % 67.8 % (47-70); Platelet Count 154 K/mm3 (150-450); RBC Distribution Width CV 15.5 % (11.6-14.6); RBC Distribution Width SD 51.1 fl (35.1-43.9); Red Blood Count 2.44 M/mm3 (4.2-5.4); White Blood Count 10.5 K/mm3 (4.4-11.0)
[2024-05-07] MEDS: 0.9% Saline Lock 10 ML Syringe IV (09:55)
[2024-05-07] MEDS: Pantoprazole Sodium 40 MG in 0.9% Normal Saline (100mL MB+) 100 ML 330 MG IV ×2 (09:56→20:50)
[2024-05-07 12:06] VITALS: BP 118/56; PULSE 84; RESP 16; TEMP 36.9; O2SAT 98
[2024-05-07 12:10] LABS: Bedside Glucose 122 mg/dL (74-106)
[2024-05-07 17:35] VITALS: BP 140/48; PULSE 86; RESP 16; TEMP 36.9; O2SAT 100
--- NOTE | 2024-05-07 17:54 | PCM.PN.BLA ---
Progress Note Patient is postop day 1 after undergoing colonoscopy for lower GI bleeding. She has not had any more GI bleeding overnight. She is tolerating a clear liquid diet. Assessment & Plan Assessment/Plan (1) GI bleed: PLAN: GI bleeding secondary to diverticular bleeding. Patient will have repeat colonoscopy approximately 3 months. I went over specific diet with her according to ACG guidelines regarding preventing diverticular bleeds. We also discussed medical therapy which would be mesalamine or sulfasalazine. This is only her first GI bleed some not recommend medical therapy at this time. Hemoglobin seems to be stable. Advance diet as tolerated. Visit Charges Inpatient E&M: 51719 Subs Hosp L2
[2024-05-07 18:11] LABS: Bedside Glucose 144 mg/dL (74-106)
[2024-05-07 20:39] VITALS: BP 122/57; PULSE 85; RESP 18; TEMP 36.5; O2SAT 98
[2024-05-07] MEDS: Atorvastatin Calcium 10 MG Tablet 5 MG PO (20:50)
[2024-05-07 21:59] LABS: Bedside Glucose 147 mg/dL (74-106)
[2024-05-07] MEDS: MELATONIN 3 MG TABLET PO (23:36)
[2024-05-07] MEDS: ALPRAZolam 0.25 MG Tablet PO (23:36)
[2024-05-08 05:48] VITALS: BMI 38.9
[2024-05-08 06:44] LABS: Absolute Lymphocyte Count 1.98 X10^3/uL (0.83-4.51); Absolute Neutrophil Count 5.3 X10^3/uL (2.0-7.7); Basophil# 0.02 X10^3/uL; Basophil% 0.3 % (0-1); Eosinophil# 0.15 X10^3/uL; Eosinophils% 1.9 % (0-5); Hematocrit 20.9 % (37-47); Hemoglobin 6.9 g/dL (12.0-15.0); Lymphocyte # 1.98 X10^3/ul (0.83-4.51); Lymphocyte % 24.9 % (19-41); Mean Corpuscular Hgb 30.7 pg (27.0-32.0); Mean Corpuscular Volume 92.9 fL (81-99); Monocyte% 6.3 % (0-10); NRBC Flagged by Analyzer 0 % (0-5); Neutrophil # 5.25 X10^3/uL (2.7-7.7); Neutrophil % 66.1 % (47-70); Platelet Count 145 K/mm3 (150-450); RBC Distribution Width CV 15.1 % (11.6-14.6); RBC Distribution Width SD 49.7 fl (35.1-43.9); Red Blood Count 2.25 M/mm3 (4.2-5.4); White Blood Count 7.9 K/mm3 (4.4-11.0)
[2024-05-08] MEDS: Levothyroxine 125 MCG Tablet PO (06:55)
[2024-05-08 06:57] VITALS: BP 115/36; PULSE 81; RESP 18; TEMP 36.5; O2SAT 98
--- NOTE | 2024-05-08 07:44 | PN_ITS ---
Progress Note Patient is doing well she underwent endoscopic procedures to determine GI bleeding. Physical Exam Const alert and no apparent distress HEENT head/scalp atraumatic and moist oral mucous membranes Resp normal respiratory effort and no retractions Cardio regular rate Assessment & Plan Assessment/Plan (1) GI bleed: PLAN: Plan 74-year-old with history of acute on chronic anemia presents with lower GI bleed : acute GI Bleed * high suspicion diverticular etiology with chronic normocytic anemia (Admission Hgb 9.6, prior 01/29/22 Hgb 10.1), though continue IV PPI. * CT a/p negative. * CTA A/P negative for acute bleed. EGD unremarkable. Colonoscopy showed blood in entire colon and extensive diverticulosis. Presumably bleeding is diverticular. Recommending repeat colonoscopy in 3 months. ABLA * Hg 9.6 down to 5.3. Now up to 7.6. * monitor * T+C 3 units. Transfused 2 units. No further transfusions at this time. Visit Charges Inpatient E&M: 50196 Subs Hosp L3
[2024-05-08 08:41] LABS: Absolute Lymphocyte Count 2.11 X10^3/uL (0.83-4.51); Absolute Neutrophil Count 4.9 X10^3/uL (2.0-7.7); Basophil# 0.03 X10^3/uL; Basophil% 0.4 % (0-1); Eosinophil# 0.16 X10^3/uL; Eosinophils% 2.1 % (0-5); Hematocrit 21.3 % (37-47); Hemoglobin 7.3 g/dL (12.0-15.0); Lymphocyte # 2.11 X10^3/ul (0.83-4.51); Lymphocyte % 27.5 % (19-41); Mean Corp Hgb Conc 34.3 g/dL (32-36); Mean Corpuscular Hgb 31.9 pg (27.0-32.0); Mean Platelet Vol. 10.7 fl (6.2-12.0); Monocyte# 0.44 X10^3/uL; Monocyte% 5.7 % (0-10); NRBC Flagged by Analyzer 0 % (0-5); Neutrophil # 4.87 X10^3/uL (2.7-7.7); Neutrophil % 63.6 % (47-70); Platelet Count 146 K/mm3 (150-450); RBC Distribution Width SD 48.7 fl (35.1-43.9); Red Blood Count 2.29 M/mm3 (4.2-5.4); White Blood Count 7.7 K/mm3 (4.4-11.0)
[2024-05-08 10:53] VITALS: BP 122/48; PULSE 82; RESP 16; TEMP 36.8; O2SAT 99
[2024-05-08] MEDS: Fluticasone 0.05% 1 SPRAY NASAL.SRY 2 SPRAY NASAL (11:01)
[2024-05-08] MEDS: Sertraline 100 MG Tablet PO (11:02)
[2024-05-08] MEDS: Montelukast 10 MG Tablet PO (11:02)
[2024-05-08] MEDS: Acetaminophen 325 MG Tablet 650 MG PO (11:02)
[2024-05-08] MEDS: Pantoprazole Sodium 40 MG in 0.9% Normal Saline (100mL MB+) 100 ML 330 MG IV (11:11)
[2024-05-08] MEDS: Gabapentin 300 MG Capsule PO (11:12)
[2024-05-08] MEDS: 0.9% Saline Lock 10 ML Syringe IV (11:13)
--- NOTE | 2024-05-08 11:26 | PN.HOSP_ITS ---
Reason for Visit Reason for Visit: Diagnoses Gastrointestinal hemorrhage, unspecified (05/05/24) Subjective Subjective Had some blood in stools. Objective Data Objective Data Vital Signs: Vital Signs Temp Pulse Resp BP Pulse Ox O2 Del Method O2 Flow Rate 36.8 C 82 16 122/48 H 99 Room Air 2 05/08/24 10:53 05/08/24 10:53 05/08/24 10:53 05/08/24 10:53 05/08/24 10:53 05/08/24 10:53 05/06/24 15:16 Oxygen Flow Rate (L/min) 2 Oxygen Delivery Method Room Air Weight: 93.4 kg Body Mass Index (BMI) 38.9 Intake & Output: Intake and Output for Last 24 Hours 05/06/24 05/07/24 05/08/24 23:59 23:59 23:59 Intake Total 580 / 580 1055 / 1055 Balance 580 / 580 1055 / 1055 Lab / Micro Data 05/08/24 08:34 05/06/24 07:07 Labs: Laboratory Results - last 24 hr 05/07/24 11:52: POC Glucose 122 H 05/07/24 17:37: POC Glucose 144 H 05/07/24 20:46: POC Glucose 147 H 05/08/24 05:49: WBC 7.9, RBC 2.25 L, Hgb 6.9 L, Hct 20.9 L, MCV 92.9, MCH 30.7, MCHC 33.0, RDW Std Deviation 49.7 H, RDW Coeff of Abena 15.1 H, Plt Count 145 L, MPV 11.0, Immature Gran % (Auto) 0.500, Neut % (Auto) 66.1, Lymph % (Auto) 24.9, [place] % (Auto) 6.3, Eos % (Auto) 1.9, Baso % (Auto) 0.3, Absolute Neuts (auto) 5.3, Absolute Lymphs (auto) 1.98, Nucleated RBC % 0 05/08/24 08:34: WBC 7.7, RBC 2.29 L, Hgb 7.3 L, Hct 21.3 L, MCV 93.0, MCH 31.9, MCHC 34.3, RDW Std Deviation 48.7 H, RDW Coeff of Abena 15.0 H, Plt Count 146 L, MPV 10.7, Immature Gran % (Auto) 0.700, Neut % (Auto) 63.6, Lymph % (Auto) 27.5, [place] % (Auto) 5.7, Eos % (Auto) 2.1, Baso % (Auto) 0.4, Absolute Neuts (auto) 4.9, Absolute Lymphs (auto) 2.11, Nucleated RBC % 0 Micro: Microbiology 05/04/24 00:40 Stool Stool Occult Blood (SARITA) - Final Occult Blood Positive Physical Exam Const alert and no apparent distress HEENT head/scalp atraumatic and moist oral mucous membranes Resp normal respiratory effort and no retractions Cardio regular rate Assessment & Plan Assessment/Plan (1) GI bleed: PLAN: Plan Acute GI Bleed * high suspicion diverticular etiology with chronic normocytic anemia (Admission Hgb 9.6, prior 01/29/22 Hgb 10.1), though continue IV PPI. * CT a/p negative. * CTA A/P negative for acute bleed. EGD unremarkable. Colonoscopy showed blood in entire colon and extensive diverticulosis. Presumably bleeding is diverticular. Recommending repeat colonoscopy in 3 months. ABLA * Hg 9.6 down to 5.3. Now up to 7.6. * monitor * T+C 3 units. Transfused 2 units. No further transfusions at this time. Type II NSTEMI * 2/2 ABLA. * EKG showed no acute process. Chronic conditions: * Incidentally noted left renal cyst, stable from previous: CT imaging with left renal cyst measuring 1.7 cm, unchanged in size from previous per radiology report. * Hypertension: Will temporally hold patient diuretic given planned hydration, as needed IV hydralazine in the interim. * Hyperlipidemia: We will continue patient on statin therapy. * Chronic Kidney Disease Stage II per GFR trending: Admission BUN/Cr 25/0.97, GFR 60, baseline renal function 0.7-1.3 although from lab review primarily 0.8-1.0, repeat BMP in AM. * Diabetes mellitus type II with chronic neuropathy: Hold oral home regimen, n.p.o. status, accu checks w/ ISS, continue home gabapentin regimen. * Chronic COPD: Per current list not on any chronic inhaler regimen, PRN albuterol, HOB, IS parameters. * Allergic rhinitis: We will continue patient home montelukast and fluticasone home regimen. * Tobacco Abuse: Encouraged cessation, inpatient consultation per RT, NR if desired. * Hypothyroidism: We will continue patient on levothyroxine regimen. * Obesity: Weight loss and lifestyle changes encouraged. * Dysthymia/anxiety and depression: We will continue patient on sertraline regimen * GERD: Will maintain the IV PPI as noted. DVT prophylaxis: SCDs. Disposition: will monitor to determine if she remains stable. Charges/Coding Visit Charges Inpatient E&M: 33138 Subs Hosp L2
--- NOTE | 2024-05-08 15:27 | DS.PCM_ITS ---
Providers Date of Admission: 05/05/24 Primary Care Physician: Dr. Ana Santiago, DO Consultations 05/05/24 08:13 Consult: Gastroenterology Routine Consulting Provider: [facility] Reason for Consult: GI bleed EMERGENT Consult: No MD Notified: Yes Date Notified: 05/05/24 Time Notified: 08:14 Method of Notification: Text Reason For Visit: GI BLEED Diagnosis Discharge Diagnosis (1) GI bleed: Status: Acute Code(s): K92.2 - Gastrointestinal hemorrhage, unspecified Plan Acute GI Bleed * high suspicion diverticular etiology with chronic normocytic anemia (Admission Hgb 9.6, prior 01/29/22 Hgb 10.1), though continue IV PPI. * CT a/p negative. * CTA A/P negative for acute bleed. EGD unremarkable. Colonoscopy showed blood in entire colon and extensive diverticulosis. Presumably bleeding is diverticular. Recommending repeat colonoscopy in 3 months. ABLA * Hg 9.6 down to 5.3. Now up to 7.6. * monitor * T+C 3 units. Transfused 2 units. No further transfusions at this time. Type II NSTEMI * 2/2 ABLA. * EKG showed no acute process. Chronic conditions: * Incidentally noted left renal cyst, stable from previous: CT imaging with left renal cyst measuring 1.7 cm, unchanged in size from previous per radiology report. * Hypertension: Will temporally hold patient diuretic given planned hydration, as needed IV hydralazine in the interim. * Hyperlipidemia: We will continue patient on statin therapy. * Chronic Kidney Disease Stage II per GFR trending: Admission BUN/Cr 25/0.97, GFR 60, baseline renal function 0.7-1.3 although from lab review primarily 0.8-1.0, repeat BMP in AM. * Diabetes mellitus type II with chronic neuropathy: Hold oral home regimen, n.p.o. status, accu checks w/ ISS, continue home gabapentin regimen. * Chronic COPD: Per current list not on any chronic inhaler regimen, PRN albuterol, HOB, IS parameters. * Allergic rhinitis: We will continue patient home montelukast and fluticasone home regimen. * Tobacco Abuse: Encouraged cessation, inpatient consultation per RT, NR if desired. * Hypothyroidism: We will continue patient on levothyroxine regimen. * Obesity: Weight loss and lifestyle changes encouraged. * Dysthymia/anxiety and depression: We will continue patient on sertraline regimen * GERD: Will maintain the IV PPI as noted. DVT prophylaxis: SCDs. Disposition: will monitor to determine if she remains stable. Medications at Discharge Home Medications Lisinopril/Hydrochlorothiazide [Zestoretic 20/12.5 Tablet] 1 tab PO DAILY 06/21/14 fluticasone propionate 50 mcg/actuation nasal spray,suspension 2 spray DAILY PRN allergy symptoms 06/21/14 gabapentin 300 mg capsule 300 mg PO DAILY 06/21/14 levothyroxine 125 mcg tablet 125 mcg PO DAILY 06/21/14 metformin 850 mg tablet 850 mg PO DAILY 06/21/14 Held on 05/08/24. Instructions: Resume on 05/10/24. montelukast 10 mg tablet 10 mg PO DAILY 06/21/14 sertraline 100 mg tablet 100 mg PO DAILY 06/21/14 simvastatin 10 mg tablet 10 mg PO QHS 06/21/14 sitagliptin phosphate 100 mg tablet (Januvia) 100 mg PO DAILY 06/21/14 alprazolam 0.5 mg tablet 0.25 mg PO BID PRN PRN anxiety 05/04/24 melatonin 10 mg tablet 10 mg PO QHS 05/04/24 ferrous sulfate 325 mg (65 mg iron) tablet 325 mg PO QODAY #20 tabs 05/08/24 psyllium husk 3.4 gram/5.4 gram oral powder (Metamucil) 1 tbsp PO DAILY #660 grams 05/08/24 Hospital Course Operations None Procedures Colonoscopy and EGD Summary of Care Provided Minutes Spent on Discharge: 35 Hospital Course: 74 year old female presents with LGIB. CTA of A/P that showed no obvious bleeding source. EGD was unremarkable. Her hemoglobin dropped to 5.3. With her hemoglobin that low she developed chest pain and troponin 174, likely due to demand ischemia. Chest pain resolved after transfusion. Colonoscopy showed blood throughout the colon, but could not identify the souce. Presumably it was diverticular given her diverticulosis. Pt remained stable. She will continue iron supplmentation upon discharge to help build up her hemoglobin. Weight / BMI Weight Weight: 93.4 kg Body Mass Index (BMI) 38.9 ABG / Lab / Microbiology Data 05/08/24 08:34 05/06/24 07:07 Laboratory: Laboratory Results - last 24 hr 05/07/24 17:37: POC Glucose 144 H 05/07/24 20:46: POC Glucose 147 H 05/08/24 05:49: WBC 7.9, RBC 2.25 L, Hgb 6.9 L, Hct 20.9 L, MCV 92.9, MCH 30.7, MCHC 33.0, RDW Std Deviation 49.7 H, RDW Coeff of Abena 15.1 H, Plt Count 145 L, MPV 11.0, Immature Gran % (Auto) 0.500, Neut % (Auto) 66.1, Lymph % (Auto) 24.9, [place] % (Auto) 6.3, Eos % (Auto) 1.9, Baso % (Auto) 0.3, Absolute Neuts (auto) 5.3, Absolute Lymphs (auto) 1.98, Nucleated RBC % 0 05/08/24 08:34: WBC 7.7, RBC 2.29 L, Hgb 7.3 L, Hct 21.3 L, MCV 93.0, MCH 31.9, MCHC 34.3, RDW Std Deviation 48.7 H, RDW Coeff of Abena 15.0 H, Plt Count 146 L, MPV 10.7, Immature Gran % (Auto) 0.700, Neut % (Auto) 63.6, Lymph % (Auto) 27.5, [place] % (Auto) 5.7, Eos % (Auto) 2.1, Baso % (Auto) 0.4, Absolute Neuts (auto) 4.9, Absolute Lymphs (auto) 2.11, Nucleated RBC % 0 Microbiology: Microbiology 05/04/24 00:40 Stool Stool Occult Blood (SARITA) - Final Occult Blood Positive D/C Instructions Discharge Diet: No restrictions DC O2, CPAP, BIPAP Needs Home O2 Discharge instructions: No Meaningful Use Info Meaningful Use Meaningful Use Diagnoses (Choose all that apply): None applicable Ischemic Stroke Statin Dosing Therapy Reference: STATIN DOSE THERAPY REFERENCE: * Patients > 75 years receive moderate or high dose statin therapy. * Patients 75 years or YOUNGER should receive HIGH intensity statin dose unless contraindicated. You will be required to document reason for non-treatment if statin daily dose does not meet guidelines. HIGH DOSE STATIN THERAPY DAILY Atorvastatin > than or = to 40 mg Rosuvastatin > than or = to 20 mg Amlodipine + Atorvastatin > than or = to 2.5/40 mg Ezetimibe + Simvastatin 10/80 mg Simvastatin 80mg Discharge Plan Admission Admit Date/Time: 05/05/24 14:51 Primary Reason for Your Visit: GI bleed. Attending Provider: Apollo Vazquez Primary Care Provider: Ana Santiago Consulting Providers: Ngoc Bardales Instructions Additional Instructions / Restrictions: You likely had bleeding from diverticulosis. It may never bleed again, but if it does, I recommend returning to the emergency department. You will be on iron for the next couple weeks to help build up your blood counts. Please follow up with Dr. Mancera in the coming months. Discharge Orders/Prescriptions Prescriptions: New ferrous sulfate 325 mg (65 mg iron) tablet 325 mg PO QODAY Qty: 20 0RF Metamucil 3.4 gram/5.4 gram powder 1 tbsp PO DAILY Qty: 660 0RF Rx Instructions: mix into at least 8 oz of water or juice before administering Continued sertraline 100 MG tablet 100 mg PO DAILY Patient Comments: antidepressant simvastatin 10 MG tablet 10 mg PO QHS Patient Comments: cholesterol levothyroxine 125 MCG tablet 125 mcg PO DAILY Patient Comments: thyroid med gabapentin 300 MG capsule 300 mg PO DAILY Patient Comments: pain montelukast 10 MG tablet 10 mg PO DAILY Patient Comments: allergies fluticasone propionate 1 SPRAY spray,suspension 2 spray NASAL DAILY PRN (Reason: allergy symptoms) Patient Comments: nasal spray Januvia 100 MG tablet 100 mg PO DAILY Patient Comments: hypoglycemic alprazolam 0.5 mg tablet 0.25 mg PO BID PRN PRN (Reason: anxiety) melatonin 10 mg tablet 10 mg PO QHS Held metformin 850 MG tablet 850 mg PO DAILY Hold Instructions: Resume on 05/10/24. Patient Comments: hypoglcemia No Action Lisinopril/Hydrochlorothiazide [Zestoretic 20/12.5 Tablet] 1 TABLET tablet 1 tab PO DAILY Patient Comments: blood pressure Referrals / Follow Up: [facility] [Provider Group] - Within 1 Month Ana Santiago DO [Primary Care Provider] - Within 2 Weeks Disposition Disposition (needs filled in before D/C Order can be placed): Home, Self Care Charges/Coding Visit Charges Inpatient E&M: 73948 Disch Hosp >30min
--- NOTE | 2024-05-08 16:17 | CASEMGMT ---
Patient has order for stamping mill tender CM in to discuss needs at discharge. Patient denies needs or help at discharge. Patient has no further questions or concerns.
[2024-05-08 16:18] VITALS: BP 106/48; PULSE 81; RESP 16; TEMP 37.1; O2SAT 99
[2024-05-08 16:52] LABS: Bedside Glucose 170 mg/dL (74-106)
== END 2024-05-08 17:03 | disposition home or self-care (01) | DRG 377 ==
LOC: ED 02:08 → MS3 02:32 → PCU 05-05 13:46
PROVIDERS: Anesthesiology; Internal Medicine; Internal Medicine Gastroenterology; Admitting Provider Family Medicine; Emergency Provider Surgery; PCP Internal Medicine
PROC: 0DJ08ZZ Inspection of Upper Intestinal Tract, Via Natural or Artificial Opening Endoscopic (ICD-10-PCS; CPT 43235; principal; 2024-05-05 15:40)
PROC: 0DJD8ZZ Inspection of Lower Intestinal Tract, Via Natural or Artificial Opening Endoscopic (ICD-10-PCS; CPT 45378; principal; 2024-05-06 15:10)
DX: K57.53 Diverticulitis of both small and large intestine without perforation or abscess with bleeding (principal); I21.A1 Myocardial infarction type 2; D62 Acute posthemorrhagic anemia; E11.22 Type 2 diabetes mellitus with diabetic chronic kidney disease; J44.9 Chronic obstructive pulmonary disease, unspecified; I12.9 Hypertensive chronic kidney disease with stage 1 through stage 4 chronic kidney disease, or unspecified chronic kidney disease; F32.A Depression, unspecified; E66.9 Obesity, unspecified; E11.40 Type 2 diabetes mellitus with diabetic neuropathy, unspecified; E78.5 Hyperlipidemia, unspecified; N18.2 Chronic kidney disease, stage 2 (mild); F17.210 Nicotine dependence, cigarettes, uncomplicated; J30.9 Allergic rhinitis, unspecified; F41.9 Anxiety disorder, unspecified; K31.89 Other diseases of stomach and duodenum; N28.1 Cyst of kidney, acquired; Z79.899 Other long term (current) drug therapy; Z79.84 Long term (current) use of oral hypoglycemic drugs; Z68.38 Body mass index [BMI] 38.0-38.9, adult
CPT/HCPCS: 36415; 74174; 74177; 80048; 80053; 81001; 82274; 82962; 83605; 83690; 84484; 85014; 85018; 85025; 85027; 86644; 86850; 86900; 86901; 90662; 93005; 94668; 99285; P9016; Q9967; A4216; J2405

== ENCOUNTER → 2024-08-10 | Outpatient (CLI) | payer MEDICARE, OTHER, SELFPAY ==
--- NOTE | 2024-08-10 14:40 | BI_ITS ---
EXAM: SCRN MAMM (CAD)W/KEERTHI BILAT DATE: 08/10/2024 CLINICAL HISTORY: F, Age 74 y/o , BREAST CANCER SCREENING BREAST CANCER RISK ASSESSMENT: Has not been calculated. TECHNIQUE: Bilateral screening digital breast tomosynthesis with 2D and 3D images. Computer aided detection. COMPARISON: Prior exam(s) dated 07/28/2020 and 01/08/2019. FINDINGS: TISSUE DENSITY: The breast tissue is composed of scattered area of fibroglandular density. Bilateral Breast Mammographic Findings: There are no suspicious masses, suspicious cluster of microcalcifications, architectural distortion or secondary signs of malignancy identified in either breast. Benign-appearing round microcalcifications are seen in both breast. Stable nodular densities are seen in both breasts. BI/SCRN MAMM (CAD)W/KEERTHI BILAT IMPRESSION: OVERALL FINAL ASSESSMENT: BIRADS 2 BENIGN FINDING RECOMMENDATION: Routine annual follow-up in 1 Year A letter with findings and recommendations will be mailed to the patient. Reading Location: [id number]
== END | disposition home or self-care (01) ==
LOC: OPBI 14:40
PROVIDERS: PCP Internal Medicine; Referring Provider Internal Medicine; Visit Provider Internal Medicine
DX: Z12.31 Encounter for screening mammogram for malignant neoplasm of breast (principal)
CPT/HCPCS: 77063; 77067

== ENCOUNTER → 2025-03-09 | Outpatient (CLI) | payer MEDICARE, OTHER, SELFPAY ==
[2025-03-09 10:54] LABS: Mucous, Urine 0 SEEN /hpf (<or=2+); Red Blood Cells-Urine 0 SEEN /hpf (0-5); Squamous Epithelial Cells - UA 0 SEEN /hpf (5-10)
[2025-03-09 12:12] LABS: Color, Urine Yellow (Yellow); Glucose, Dipstick Normal (Normal); Ketone-Dipstick Negative (Negative); Leukocyte Esterase-Dipstick 25 /ul (Negative); Nitrite-Dipstick Negative (Negative); Occult Blood-Urine Negative /ul (Negative); Protein-Dipstick 15 mg/dl (Negative); Specific Gravity, Urine 1.020 (1.002-1.030); Urine Bilirubin Dipstick Negative (Negative)
[2025-03-09 12:24] LABS: Hematocrit 35.9 % (37-47); Hemoglobin 11.7 g/dL (12.0-15.0); Immature Granulocytes Count 0.030 X10^3/uL (0.0-0.0); Mean Corp Hgb Conc 32.6 g/dL (32-36); Mean Corpuscular Volume 96.8 fL (81-99); Mean Platelet Vol. 11.5 fl (6.2-12.0); NRBC Flagged by Analyzer 0 % (0-5); Platelet Count 264 K/mm3 (150-450); RBC Distribution Width CV 13.5 % (11.6-14.6); RBC Distribution Width SD 48.3 fl (35.1-43.9); Red Blood Count 3.71 M/mm3 (4.2-5.4); White Blood Count 9.6 K/mm3 (4.4-11.0)
[2025-03-09 12:35] LABS: Creatinine, Urine (random) 133.00 mg/dL (28.00-217.00); Microalbumin,Random Urine < 12.0 mg/L (<20 mg/L)
[2025-03-09 12:47] LABS: AST(SGOT) 24 U/L (<=31); Alanine Aminotransfer ALT/SGPT 11 U/L (<=34); Albumin, Serum 4.4 g/dL (3.4-4.8); Alkaline Phosphatase 136 U/L (35-104); Anion Gap 12 (5-15); BUN 22 mg/dL (4-19); BUN/Creat Ratio 19.9 RATIO (10-20); Calcium,Total 10.2 mg/dL (7.6-11.0); Carbon Dioxide 24.9 mmol/L (21.0-32.0); Chloride 98 mmol/L (98-108); Cholesterol 165 mg/dL (<=200); Globulin 3.5 g/dL (2.2-4.2); Glucose 123 mg/dL (70-99); Low Density Lipoprotein Calc. 85 mg/dL; Potassium 4.4 mmol/L (3.3-5.1); Triglycerides 178 mg/dL; Very Low Density Lipoprotein 36 mg/dL (5-40); Vitamin D,25 Hydroxy 81.8 ng/mL (30-100); cholesterol:hdl ratio screen 3.35
== END | disposition home or self-care (01) ==
LOC: CIMLAB 10:53
PROVIDERS: PCP Internal Medicine; Referring Provider Internal Medicine; Visit Provider Internal Medicine
DX: R73.09 Other abnormal glucose (principal); E78.00 Pure hypercholesterolemia, unspecified; E03.9 Hypothyroidism, unspecified; E55.9 Vitamin D deficiency, unspecified
CPT/HCPCS: 36415; 80053; 80061; 81001; 82043; 82306; 82570; 84443; 85025